=== PATIENT | female | born 1985 | race Caucasian/White ===

== ENCOUNTER → 2023-02-11 15:25 | Outpatient (BNVA) | payer OTHER, SELFPAY | PROVIDERS: PCP Internal Medicine; Visit Provider Psychiatry & Neurology Neurology | DX: Z13.89 Encounter for screening for other disorder (principal) ==

== ENCOUNTER 2023-03-24 13:06 | Outpatient (REF) | payer OTHER, SELFPAY ==
--- NOTE | 2023-03-24 13:12 | EEG_ITS ---
FINDINGS: Waking background activity consists of moderate to high voltage 7.5 to 8 hertz alpha frequency intermixed anteriorly with low voltage fast frequencies. Photic stimulation is without activation. Hyperventilation produces mild background slowing. No sleep stages are identified. No focal, lateralizing, or paroxysmal discharges are seen. IMPRESSION: This waking EEG is within normal limits. MD KINA Charles/ALDEN / [id number]
== END 2023-03-24 13:07 | disposition home or self-care (01) ==
LOC: HO.NEURO 13:06
PROVIDERS: PCP Internal Medicine; Visit Provider Psychiatry & Neurology Neurology
DX: R55 Syncope and collapse (principal)
CPT/HCPCS: 95816

== ENCOUNTER 2025-06-21 09:44 | Emergency (ER) | payer OTHER, SELFPAY ==
[2025-06-21 10:16] VITALS: BP 120/75; PULSE 112; RESP 16; TEMP 37.1; O2SAT 98; BMI 26.4
--- NOTE | 2025-06-21 10:19 | ED_ITS ---
HPI - General Adult General Chief complaint: General Medical Stated complaint: unable to eat or drink vomiting Time Seen by Provider: 06/21/25 13:44 History of Present Illness ED Provider: Enmanuel CHRISTENSEN narrative: The patient is a 40-year-old female who says that she has had a sore throat for about 4 days. She says that she was seen at an urgent care center 2 days ago on Wednesday and apparently had a positive strep test. She was prescribed antibiotics. However since starting the antibiotics the patient has continued to feel unwell with a severe sore throat. She has a great deal of trouble swallowing because of her sore throat. She has taken 3 doses of the antibiotics is able to keep the antibiotics down but does not feel that she is getting any better. She has had no shortness of breath. She is able to speak. But she describes severe pain with swallowing. Related Data Home Medications ?Medication ?Instructions ?Recorded ?Confirmed albuterol sulfate 90 mcg/actuation 1 inh inhalation Q4 -6H PRN 02/11/23 02/11/23 breath activated powder inhaler Previous Rx's ?Medication ?Instructions ?Recorded gabapentin 100 mg capsule See Rx Instructions PO BEDTI ME #90 02/11/23 caps riboflavin (vitamin B2) 100 mg 400 mg (4 x 100 mg) PO QAM #120 02/11/23 tablet tabs magnesium oxide 400 mg PO DAILY #30 caps 09/09 escitalopram oxalate 5 mg tablet 5 mg PO DAILY #30 tab s 09/28/23 ibuprofen 400 mg tablet 400 mg PO Q6H PRN pain #14 t abs 06/21/25 valacyclovir 1 gram tablet 1,000 mg PO TID 7 days #21 tabs 06/21/25 Allergies Allergy/AdvReac Type Severity Reaction Status Date / Time acetaminophen (From Percocet) Allergy Mild Vomiting Verified 06/21/25 10:19 doxycycline Allergy Mild Stomach Verified 06/21/25 10:19 Upset oxycodone (From Percocet) Allergy Mild Vomiting Verified 06/21/25 10:19 Review of Systems 2 Review of Systems: Yes all other systems are reviewed and are negative PMF Past Medical History Medical History (Updated 06/22/25 @ 00:01 by Background Dafadia) Chronic migraine without aura Syncope Restless legs syndrome (RLS) Heel spur Iron deficiency anemia Asthma Depression Anxiety Surgical History (Updated 09/21/22 @ 15:04 by LEONELA Becker) Hx of tonsillectomy History of tubal ligation History of gastric bypass History of carpal tunnel surgery Previous section Family History Family History (Updated 09/21/22 @ 15:07 by LEONELA Becker) Mother Depression Anxiety Breast cancer Hypertension Diabetes Maternal Grandmother Breast cancer Social History Social History (Updated 02/11/23 @ 15:34 by LEONELA Becker) Alcohol intake: current Patient Tobacco Use Status: Former Tobacco user Tobacco use type: Cigarette Smoked in Last 30 Days: No Substance Use Type: Marijuana Advance Directives: No Advance Directives Information Provided: Yes Physical Exam ED Vital Signs: Vital Signs - 24 hr 06/21/25 10:16 06/21/25 12:06 06/21/25 14:03 Temperature 98.7 F 97.9 F 100.1 F Pulse Rate 112 H 93 93 Respiratory Rate 16 16 16 Blood Pressure 120/75 122/78 116/75 Pulse Oximetry 98 100 100 Oxygen Delivery Method Room Air Room Air Room Air 06/21/25 15:27 Temperature 98.3 F Pulse Rate 93 Respiratory Rate 16 Blood Pressure 116/75 Pulse Oximetry 100 Oxygen Delivery Method Room Air BMI result Body Mass Index 26.4 Const Other: The patient is a 40-year-old woman who was awake and alert. She looks mildly unwell but not in acute distress. She seems to be handling her own secretions. She does not appear to be short of breath. Orientation/consciousness: patient oriented x3 HENMT Other: There was no trismus. The patient opens her mouth easily unwell. There are multiple vesicular like lesions in the posterior pharynx and on the posterior soft palate. No tonsillar enlargement. No exudate. Eyes Other: Pupils are round equal, conjunctivae are clear, extraocular movements intact General: appearance normal, both eyes and all related structures Neck Other: The neck is supple. No definite adenopathy was appreciated. Resp Effort & Inspection: normal respiratory effort Auscultation: clear to auscultation bilaterally Cardio Rate: regular rate Rhythm: regular rhythm Heart sounds: S1 normal heart sound present and S2 normal heart sound present GI Other: Abdomen was soft and nontender Skin Other: The skin is dry and unremarkable General skin exam: no rashes or lesions noted Neuro General: patient oriented x3, tone normal, moves all extremities, no focal motor deficits and CN's II-XI intact bilaterally Extrem Other: There is no calf swelling or tenderness. No asymmetry. No peripheral edema. Course Course Course Narrative: This is a rapid medical exam performed by Arline Monterroso NP: Additional HPI, ROS, PE not included below will be deferred to primary provider. Patient is a 40- year old female presenting to the ED with complaint of nausea and vomiting. Diagnosed with strep on , attempted to start antibiotics yesterday, has taken 3 total doses. Complains of sweats, ear pain, my teeth hurt. Now having nausea and vomiting, unable to tolerate PO. Plan: covid and strep swabs, labs Medications Administered Discontinued Medications Generic Name Dose Route Start Last Admin Trade Name Kiki PRN Reason Stop Dose Admin Dexamethasone Sodium Phosphate 10 mg 06/21/25 14:15 06/21/25 14:29 Dexamethasone Sod Phosphate 10 Mg/Ml Vial IVPUSH 06/21/25 14:16 10 mg ONCE ONE Administration Sodium Chloride 1,000 mls @ 999 mls/hr 06/21/25 14:15 06/21/25 15:22 Ns IV 06/21/25 15:15 Infused .Q1H1M DOTTIE Infusion Acetaminophen 1,000 mg in 100 mls @ 400 mls/hr 06/21/25 14:15 06/21/25 14:55 Ofirmev IV 06/21/25 14:29 Infused ONCE ONE Infusion Ketorolac Tromethamine 15 mg 06/21/25 14:15 06/21/25 14:29 Ketorolac Tromethamine 15 Mg/Ml Vial IVPUSH 06/21/25 14:16 15 mg ONCE ONE Administration Valacyclovir HCl 1,000 mg 06/21/25 15:09 06/21/25 15:21 Valacyclovir Hcl 1,000 Mg Tablet PO 06/21/25 15:10 1,000 mg ONCE ONE Administration Medical Decision Making Medical Decision Making MDM Narrative: the patient is a 40-year-old woman who presents with a complaint of significant sore throat pain. She says that she was diagnosed with a positive strep test 2 days ago at an urgent care center and was prescribed amoxicillin but is not getting any better. She describes severe pain with swallowing. She does not seem to have any shortness of breath or voice change or difficulty handling her secretions. Her pharyngeal exam is distinctly abnormal but I do not feel it is suggestive of strep throat. She has multiple vesicular like lesions in the posterior pharynx and on the posterior soft palate. This looks much more like a viral pharyngitis to me. The patient was swabbed for strep today and is negative. I also sent a herpes viral swab. Since she says she had a positive rapid strep 2 days ago I am advising her to continue her amoxicillin. I will also add valacyclovir 1 g t.i.d. x7 days. The patient was treated symptomatically with IV fluids, IV ketorolac, and IV dexamethasone. She seemed to feel better. She will be given her 1st dose of valacyclovir in the emergency department. She will be discharged to take the valacyclovir and finish the amoxicillin as well. She should return if worse. Lab Data 06/21/25 11:11 06/21/25 11:11 Labs: Lab Results 06/21/25 06/21/25 06/21/25 Range/Units 11:09 11:11 14:05 WBC 4.2 L (4.8-10.8) X10*3/uL RBC 4.68 (4.20-5.50) X10*6/uL Hgb 15.0 (12.0-16.0) g/dl Hct 42.9 (37.0-47.0) % MCV 91.7 (80.0-98.0) fL MCH 32.1 (27.0-33.0) pg MCHC 35.0 (31.0-35.0) g/dl RDW 12.7 (11.0-16.0) % Plt Count 165 (160-400) X10*3/uL MPV 9.5 (9.4-12.3) fL Immature Gran % (Auto) 0.5 H (0.0-0.4) % Neut % (Auto) 74.3 H (45-73) % Lymph % (Auto) 15.6 L (20-40) % [place] % (Auto) 9.4 (2-11) % Eos % (Auto) 0.0 (0-4) % Baso % (Auto) 0.2 (0-2) % Lymph # (Auto) 0.7 L (1.2-4.9) X10*3/uL [place] # (Auto) 0.4 (0.1-1.2) X10*3/uL Eos # (Auto) 0.0 (0.0-0.4) X10*3/uL Baso # (Auto) 0.0 (0.0-0.2) X10*3/uL Abs Immat Gran (auto) 0.02 (0.00-0.03) X10*3/uL Absolute Neuts (auto) 3.1 (2.0-8.3) x10*3/uL Absolute Nucleated RBC 0.000 (0.0-0.012) X10*3/uL Nucleated RBC % (auto) 0.0 (0.0-0.2) /100WBC Sodium 137 (135-145) mmol/L Potassium 4.3 (3.3-5.1) mmol/L Chloride 102 (96-108) mmol/L Carbon Dioxide 23 (22-29) mmol/L Anion Gap 16 (12-20) BUN 13 (9-16) mg/dL Creatinine 0.69 (0.5-1.4) mg/dL Estim Creat Clear Calc 89.4 Estimated GFR > 60 Random Glucose 69 (60-115) mg/dL Calcium 9.1 (8.4-10.2) mg/dL Total Bilirubin 0.4 (0.0-1.0) mg/dL AST 27 (5-31) U/L ALT 16 (0-31) U/L Alkaline Phosphatase 50 (39-117) U/L Total Protein 7.5 (6.5-8.0) g/dL Albumin 4.4 (3.5-5.0) g/dL Beta HCG, Quant < 2 mIU/mL COVID-19 (GEORGE) Negative (Negative) COVID-19 Clin Com See Note Influenza Type A (MOISÉS) Negative (Negative) Influenza Type B (MOISÉS) Negative (Negative) Influenza A & B Note See Note S. pyogenes GrpA MOISÉS Negative (Negative) Discharge Plan Discharge Clinical Impression: Pharyngitis Patient Disposition: Home, Self-Care Instructions: Pharyngitis (ED) Additional Instructions: The appearance of your throat today has the appearance of a significant viral infection rather than a bacterial infection. Your strep test today is negative. A swab has been sent to see if this might be a herpes virus infection. This will take a few days. In any event you will be started on valacyclovir, an antiviral medication. Please take this medication 3 times a day. Since the urgent care told you that you were previously positive for strep I would recommend completing the course of amoxicillin even though your strep test today is not positive on our testing. Please continue to use ibuprofen and acetaminophen (Tylenol) as needed for pain. Do your best to drink lot of fluids. Please work on getting a regular primary care doctor. Return to the emergency room if significantly worse. Prescriptions: New ibuprofen 400 mg tablet 400 mg PO Q6H PRN (Reason: pain) Qty: 14 0RF valacyclovir 1 gram tablet 1,000 mg PO TID 7 Days Qty: 21 0RF No Action magnesium oxide 400 mg magnesium capsule 400 mg PO DAILY Qty: 30 3RF escitalopram oxalate 5 mg tablet 5 mg PO DAILY Qty: 30 6RF albuterol sulfate 90 mcg/actuation aerosol powdr breath activated 1 inh inhalation Q4-6H PRN gabapentin 100 mg capsule See Rx Instructions PO BEDTIME Qty: 90 6RF Rx Instructions: 1-3 caps orally bedtime; riboflavin (vitamin B2) 100 mg tablet 400 mg PO QAM Qty: 120 6RF Stand Alone Forms: Work/School Release Interventions: ED Discharge Assessment Last Done: 06/21/25 15:27 Discharge Date/Time: 06/21/25 15:28 Print Language: S[place]
[2025-06-21 11:18] LABS: MANUAL DIFF FLAG NO
[2025-06-21 11:26] LABS: Hematocrit 42.9 % (37.0-47.0); Hemoglobin 15.0 g/dl (12.0-16.0); Imm Gran Abs Auto 0.02 X10*3/uL (0.00-0.03); Imm Gran Pct Auto 0.5 % (0.0-0.4); Lymphocytes Absolute Auto 0.7 X10*3/uL (1.2-4.9); Mean Corpuscular HGB Conc 35.0 g/dl (31.0-35.0); Mean Corpuscular Hemoglobin 32.1 pg (27.0-33.0); Mean Corpuscular Volume 91.7 fL (80.0-98.0); NRBC Abs Auto 0.000 X10*3/uL (0.0-0.012); NRBC Pct Auto 0.0 /100WBC (0.0-0.2); Platelet Count 165 X10*3/uL (160-400); Red Blood Count 4.68 X10*6/uL (4.20-5.50); White Blood Count 4.2 X10*3/uL (4.8-10.8)
[2025-06-21 11:39] LABS: Alanine Aminotransferase 16 U/L (0-31); Albumin Level 4.4 g/dL (3.5-5.0); Alkaline Phosphatase 50 U/L (39-117); Anion Gap 16 (12-20); Aspartate Amino Transferase 27 U/L (5-31); Blood Urea Nitrogen 13 mg/dL (9-16); Calcium 9.1 mg/dL (8.4-10.2); Carbon Dioxide 23 mmol/L (22-29); Chloride 102 mmol/L (96-108); Creatinine Clr Calc Pharmacy 89.4; Estimated Glomerular Filt Rate > 60; Potassium 4.3 mmol/L (3.3-5.1); Sodium 137 mmol/L (135-145); Total Protein 7.5 g/dL (6.5-8.0)
[2025-06-21 11:42] LABS: COVID-19 Test Negative (Negative); IDNOW Serial# 6674DD1D
[2025-06-21 11:43] LABS: IDNOW Serial# 08D9AD1C; Influenza B2 Negative (Negative)
[2025-06-21 12:06] VITALS: BP 122/78; PULSE 93; RESP 16; TEMP 36.6; O2SAT 100
--- OUTSIDE RECORDS SUMMARY | 2025-06-21 13:12 | XMS_ITS | Clinical Summary ---
Author Organization [facility] Address [address] [place] [address] Care Team Providers Care Commodity Trader Name Role Phone Guillaume Barkley Primary Care Provider Allergies Active Allergy Reactions Criticality Noted Date Comments Oxycodone Uqo-Enlsvehyd-Rch Unknown 03/23/2023 Oxycodone-Acetaminophen Unknown,Nausea A nd Vomiting 11/24/2019 Penicillins Nausea,Vomiting 03/23/2023 Tetracyclines Itching,Unknown 12/03/2016 Upset stomach and itchiness Medications Ventolin HFA 90 mcg/actuation inhaler INHALE 2 PUFFS EVERY 4 TO 6 HOURS NEEDED WHEEZING 02/23/2023 Active escitalopram (LEXAPRO) 5 mg tablet SMARTSI Tablet(s) By Mouth Daily 03/16/2023 Active Flovent HFA 220 mcg/actuation inhaler Only as needed 01/27/2023 Active gabapentin (NEURONTIN) 100 mg capsule Only as needed 02/12/2023 Active magnesium oxide (MAG-OX) 400 mg (241.3 mg mag) tablet SMARTSI Tablet(s) By Mouth Daily 02/11/2023 Active vitamin B complex-vitamin C tablet Take 1 tablet by mouth once a day. Active Active Problems Problem Noted Date Diagnosed Date Fatigue 04/17/2014 Lower back pain 04/17/2014 Major depression, recurrent 03/29/2014 Infectious gastroenteritis 11/03/2013 Asthma 03/31/2013 Morbid obesity 10/08/2011 Immunizations Immunization Administration Dates Next Due Tetanus Toxoid, Reduced Diph theria Toxoid, and Acellular Pertussis Vaccine, Adsorbed 05/13/2012 Family History Medical History Relation Name Comments Other Mother Family History of coronary arteriosclerosis Relation Name Status Comments Mother Social History Tobacco Use Types Packs/Day Years Used Date Smoking Tobacco: Never Smokeless Tobacco: Never Tobacco Cessation:Counseling Given: Not Answered Comments:: Alcohol Use Standard Drinks/Week Comments Yes 0 (1 standard drink = 0.6 oz pur e alcohol) very seldom Comments No Sex and Gender Information Value Date Recorded Sex Assigned at Female 03/22/2023 2:19 PM EDT Legal Sex Female 7:42 AM EDT Gender Identity Female 03/22/2023 2:19 PM EDT Sexual Orientation Straight 03/22/2023 2: 19 PM EDT Last Filed Vital Signs Vital Sign Reading Time Taken Comments Blood Pressure 114/72 05/26/2023 10:22 AM EDT Pulse 64 05/26/2023 10:22 AM EDT Temperature 36.7 C (98 F) 05/20/2023 2:34 PM EDT Respiratory Rate 16 05/20/2023 2:34 PM EDT Oxygen Saturation 100% 05/26/2023 10:22 AM EDT Inhaled Oxygen Concentration - - Weight 88.6 kg (195 lb 6.4 oz) 05/20/2023 10:16 AM EDT Height 152.4 cm (5') 05/13/2023 10:14 AM EDT Body Mass Index 38.16 05/13/2023 10:14 AM EDT Plan of Treatment Health Maintenance Due Date Last Done Comments HIV Screening 1986 HPV and Pap Smear 1986 Hepatitis C Screening 1986 Varicella Vaccines (1 of 2 - 13+ 2-dose series) 1999 Hepatitis B Vaccines (1 of 3 - 19+ 3-dose series) 2005 Pneumococcal Vaccine: Pediat paris (0-5 Years) and At-Risk Patients (6-50 Years) (1 of 2 - PCV) 2005 Cervical Cancer Screening 11/07/2016 Pap Smear 11/07/2016 11/07/2013 Alcohol/Substance Use Screening 10/18/2024 Depression Screening and Follow-Up 10/18/2024 Social Drivers of Health Viridiana ual Screening 10/18/2024 COVID-19 Vaccine (3 - 2024-2 6 season) 2025 08/30/2021, 01/26/2021 Influenza Vaccine (#1) 2025 2, 08/11/2022, 08/25/2021, Additional history exists DTaP,Tdap,and Td Vaccines (3 - Td or Tdap) 06/22/2025 06/22/2015, 05/13/2012 RSV Vaccine (60+ years old a nd patients) (1 - 1-dose 75+ series) 2061 Procedures * Due to [place] Fast [employer] law, this organization might not be sharing negative HIV tests. Procedure Name Priority Date/Time Associated Diagnosis Comments PAP SMEAR Routine 11/07/2013 4:14 PM EST from Last 3 Months or Most Recently Relevant to Health Maintenance Results * Due to [place] state law, this organization might not be sharing negative HIV tests. * PAP SMEAR (11/07/2013 4:14 PM EST) Pap smear NEGATIVE/DR DESIREE LUONG OTHER 11/07/2013 4:14 PM EST us Jodi Ramírez HEALTH MAINTENANCE Final Resu lt OTHER from Last 3 Months or Most Recently Relevant to Health Maintenance Insurance [address] [address] MEDICAID Advance Directives Documents on File Type Date Recorded Patient Staffing Assistant Expl anation Advance Directive 11/09/2011 12:00 AM Mat lopez Care Directives Advance Directive 11/06/2011 12:00 AM liz [email or web address] Dec (Adv.Dir) * Full Code (Latest Code Status on File) Date Activated Date Inactivated Comments 05/20/2023 10:19 AM 05/20/2023 5:01 PM Care Teams Commodity Trader Relationship Specialty Start Date End Date RubiaLorenano [address] [place] [id number] PCP - General Internal Medicine 02/03/23
--- OUTSIDE RECORDS SUMMARY | 2025-06-21 13:12 | XMS_ITS | Clinical Summary ---
Author Organization 175 [facility] Address [address] [place] [address] Phone Care Team Providers Care Environmental Services Coordinator Name Role Phone RubiaGuillaume Primary Care Provider [phone] Allergies Active Allergy Reactions Criticality Noted Date Comments Doxycycline 12/03/2016 Upset stomach and itchiness Oxycodone 12/03/2016 Upset stomach Oxycodone-Acetaminophe n Nausea And Vomiting 11/24/2019 Percocet [Apap-fd&c Red #40 [place]-oxycodone] Medications bupropion HCl (WELLBUTRIN ORAL) Take by mouth. Activ e cyclobenzapri ne (FLEXERIL) 5 mg tablet Take 5 mg by mouth 3 times daily as needed. Active escitalopram (LEXAPRO) 20 mg tablet Take 20 mg by mouth daily. Active montelukast (SINGULAIR) 10 mg tablet Take 1 tablet by mouth at bedtime for 360 days. 07/22/20 21 Active mupirocin (BACTROBAN) 2 % ointment Apply a small amount to nipple(s) and gently rub in after nursing/pumping, use 6 times per day for 5-7 days, use as directed. 12/03/19 17 Active albuterol HFA (ProAir HFA) 90 mcg/actuation inhaler INHALE 2 PUFFS INTO THE LUNGS EVERY 6 HOURS NEEDED FOR COUGH OR WHEEZING FOR UP TO 30 DAYS. 09/12/20 21 Active rOPINIRole (REQUIP) 0.25 mg tablet Take 0.25 mg by mouth 3 times daily. Active nystatin (MYCOSTATIN) 100,000 unit/gram powder Apply topically 2 (two) times a day. 15 g 08/21/20 24 2024 Active hydrOXYzine HCL (ATARAX) 25 mg tablet Take by mouth. Ac tive sertraline (ZOLOFT) 50 mg tablet Take 1 tablet (50 mg total) by mouth 1 (one) time each day. Active Zepbound 12.5 mg/0.5 mL injection INJECT 12.5 MG SUBCUTANEOUSLY EVERY 7 DAYS. 4 mL 06/20/20 25 Active tirzepatide, weight loss, (Zepbound) 12.5 mg/0.5 mL injection Inject 0.5 mL (12.5 mg total) under the skin every 7 (seven) days. 2 mL 05/22/20 25 2024 Discontinued Active Problems Problem Noted Date Diagnosed Date Class 1 obesity due to exces s calories without serious comorbidity with body mass index (BMI) of 34.0 to 34.9 in adult 08/16/2024 Syncope 05/26/2024 Allergic rhinitis 02/19/2021 Overview (08/16/2024): Ishan Rob Iron (Fe) deficiency anemia 01/31/2021 Overview (08/16/2024): Ishan Rob Anxiety 01/02/2021 Overview (08/16/2024): Ishan Rob Depressive episode 01/02/2021 Overview (08/16/2024): Ishan Rob Restless leg syndrome 01/02/2021 Encounters Date Type Department Care Team Description 06/12/2025 10:00 AM EDT Office Visit Bariatric Surgery - [address] [id number] Susan Hill PA Overweight (BMI 25.0-29.9) (Primary Dx); Bariatric surgery status 05/21/2025 Telephone Bariatric Surgery - [place] [address] [place] [address] Susan Hill PA 04/23/2025 Telephone Bariatric Surgery - [place] [address] [facility] [address] [place] [address] Susan Hill PA from Last 3 Months Immunizations Name Administration Dates Next Due WinningAdvantage/TheraVid SARS-CoV-2 COVID -19, vector-nr, [id number], preservative free 08/30/2021,01/26/2021 Surgical History Surgery Date Site/Laterality Comments SECTION 2004, 2012,2015,2019 PROCEDURE: HISTORICAL DELIVERY TONSILLECTOMY 10/18/2000 PROCEDURE: HISTORICAL TONSILLECTOMY ABDOMINAL SURGERY 10/18/2011 PROCEDURE: HISTORICAL ABDOMINAL SURGERY; COMMENT: gastric bypass CARPAL TUNNEL RELEASE 10/18/2009 Bilateral PROCEDURE: HISTORICAL CARPAL TUNNEL REL TUBAL LIGATION 2020 PROCEDURE: HISTORICAL TUBAL LIGATION SECTION PROCEDURE: SECTION TONSILLECTOMY PROCEDURE:TONSILLECTOMY GASTRIC BYPASS PROCEDURE:GASTRIC BYPASS Medical History Medical History Date Comments Anxiety DX:Anxiety Depression DX:Depression Restless legs DX:Restless legs Iron deficiency anemia DX:Iron d eficiency anemia Family History Medical History Relation Name Comments Asthma Aunt Asthma Brother Asthma Daughter No Known Problems Father Breast cancer Mother Depression Mother Diabetes Mother Hypertension Mother Breast cancer Mother's side Mat Cousin Breast cancer Other Mat great grandmother Relation Name Status Comments Aunt Alive Brother Alive Daughter Alive Father Mother Alive Mother's side Mat Cousin Other Mat great grandmother Social History Tobacco Use Types Packs/Day Years Used Date Smoking Tobacco: Never Smokeless Tobacco: Never Tobacco Cessation:Counseling Given: Not Answered Alcohol Use Standard Drinks/Week Comments Yes 0 (1 standard drink = 0.6 oz pur e alcohol) Comments Unknown Sex and Gender Information Value Date Recorded Sex Assigned at Not on file Legal Sex Female 11:25 PM EST Gender Identity Not on file Sexual Orientation Not on file Obstetrics History Last Filed Vital Signs Vital Sign Reading Time Taken Comments Blood Pressure 110/76 06/12/2025 9:08 AM EDT Pulse 85 06/12/2025 9:08 AM EDT Temperature 36.6 C (97.8 F) 11/20/2024 9:21 AM EST Respiratory Rate - - Oxygen Saturation - - Inhaled Oxygen Concentration - - Weight 65.4 kg (144 lb 3.2 oz) 06/12/2025 9:08 A M EDT Height 152.4 cm (5') 06/12/2025 9:08 AM EDT Body Mass Index 28.16 06/12/2025 9:08 AM EDT Plan of Treatment Upcoming Encounters Date Type Department Care Team (Late st Contact Info) Description 11/08/2025 9:15 AM EST Office Visit Bariatric Surgery - [place] [address] [facility] [address] [place] [address] Susan Hill PA [address] [place] [phone] Health Maintenance Due Date Last Done Comments Hepatitis B Vaccines (1 of 3 - 19+ 3-dose series) 2005 Pneumococcal Vaccine: Pediatrics (0 to 5 Years) and At-Risk Patients (6 to 49 Years) (1 of 2 - PCV) 2005 Cervical Cancer Screening: P ap Smear 2007 HIV Screening 09/20/2022 Hepatitis C Screening 09/20/2022 Social Influencers of Health Screening 09/20/2022 Depression Screening 10/18/2024 COVID-19 Vaccine (3 - 2024-2 6 season) 2025 08/30/2021, 01/26/2021 Influenza Vaccine (#1) 2025 2, 08/02/2017 DTaP,Tdap,and Td Vaccines (3 - Td or Tdap) 06/22/2025 06/22/2015, 05/13/2012 Cholesterol Screening (Lipid Panel) 02/06/2030 02/06/2025 HIB Vaccines Aged Out No longer eligi ble based on patient's age to complete this topic HPV Vaccines Aged Out No longer eligi ble based on patient's age to complete this topic Hepatitis A Vaccines Aged Out No long er eligible based on patient's age to complete this topic IPV Vaccines Aged Out No longer eligi ble based on patient's age to complete this topic MMR Vaccines Aged Out No longer eligi ble based on patient's age to complete this topic Meningococcal ACWY Vaccine Aged Out N o longer eligible based on patient's age to complete this topic Meningococcal B Vaccine Aged Out No l onger eligible based on patient's age to complete this topic RSV Immunization Patients Under 20 months Aged Out No longer eligible b ased on patient's age to complete this topic Varicella Vaccines Aged Out No longer eligible based on patient's age to complete this topic Procedures Procedure Name Priority Date/Time Associated Diagnosis Comments LIPID PANEL WITH REFLEX TO DIRECT LDL Routine 02/06/2025 11:33 AM EDT Depression Anxiety Anemia Asthma Abdominal migraine Routine general medical examination at a health care facility from Last 3 Months or Most Recently Relevant to Health Maintenance Results * Lipid panel with reflex to direct LDL (02/06/2025 11:33 AM EDT) Cholesterol 157 0 - 200 mg/dL LAB CHEMISTRY METHOD 02/06/2025 3:51 PM EDT [facility] Triglycerides 71 0 - 150 mg/dL LAB CHEMISTRY METHOD 02/06/2025 3:51 PM EDT [facility] HDL 56 >=40 mg/dL LAB CHEMISTRY METHOD 02/06/2025 3:51 PM EDT [facility] LDL Calculated 87 0 - 100 mg/dL LAB CHEMISTRY METHOD 02/06/2025 3:51 PM EDT [facility] VLDL Cholesterol Maninder 14.2 mg/dL LAB CHEMISTRY METHOD 02/06/2025 3:51 PM EDT [facility] Non HDL Chol. (LDL+VLDL) 101 <145 mg/dL LAB CHEMISTRY METHOD 02/06/2025 3:51 PM EDT [facility] Chol/HDL Ratio 2.8 0.0 - 4.4 LAB CHEMISTRY METHOD 02/06/2025 3:51 PM EDT [facility] Blood Venous blood specimen / Unknown Venipuncture / Unknown 02/06/2025 11:33 AM EDT 02/06/2025 11:34 AM EDT Any [facility] LAB BLOOD ORDERABLES Final Resul t [facility] [address] [place] [address], from Last 3 Months or Most Recently Relevant to Health Maintenance Insurance [facility] [employer] Advance Directives Documents on File Type Date Recorded Patient Student Support Services Director Expl anation Health Care Decision (hx) 08/11/2022 AD WHEAT DIRECTIVE Health Care Decision (hx) 08/11/2022 AD WHEAT DIRECTIVE Care Teams Environmental Services Coordinator Relationship Specialty Start Date End Date Guillaume Barkley DO [address] [place] [phone] PCP - General Internal Medicine 06/10/21
--- OUTSIDE RECORDS SUMMARY | 2025-06-21 13:13 | XMS_ITS | Clinical Summary ---
[facility] Address [address] [place] [address] Care Team Providers Care Chuck Splitter Name Role Phone Guillaume Barkley DO Primary Care Provider [phone] Allergies Active Allergy Reactions Criticality Noted Date Comments Doxycycline 11/24/2019 Oxycodone-Acetaminophen 11/24/2019 Medications Medication Sig Dispensed Refills Start Date End Date Status escitalopram (LEXAPRO) 20 MG tablet Take 20 mg by mouth daily. 0 Active buPROPion (WELLBUTRIN) 75 MG tablet Take 75 mg by mouth 2 (two) times a day. 0 Active Active Problems No known active problems Social History Tobacco Use Types Packs/Day Years Used Date Smoking Tobacco: Never Smokeless Tobacco: Never Alcohol Use Standard Drinks/Week Comments Yes 0 (1 standard drink = 0.6 oz pur e alcohol) ocassionally when not Sex and Gender Information Value Date Recorded Sex Assigned at Not on file Gender Identity Not on file Sexual Orientation Not on file Job Start Date Occupation Industry Not on file Not on file Not on file Last Filed Vital Signs Vital Sign Reading Time Taken Comments Blood Pressure 117/73 03/06/2022 11:57 AM EDT Pulse 74 03/06/2022 11:57 AM EDT Temperature 36.2 C (97.2 F) 03/06/2022 11:57 AM EDT Respiratory Rate - - Oxygen Saturation 99% 03/06/2022 11:57 AM EDT Inhaled Oxygen Concentration - - Weight 103.9 kg (229 lb) 03/06/2022 11:57 AM EDT Height 152.4 cm (5') 03/06/2022 11:57 AM EDT Body Mass Index 44.72 03/06/2022 11:57 AM EDT Plan of Treatment Health Maintenance Due Date Last Done Comments Hepatitis B Vaccines (1 of 3 - 3-dose series) 1986 Hepatitis C Screening 1986 Depression Screening 1998 Preventative Health Evaluation 2004 DTap / Tdap / Td (1 - Tdap) 2005 Cervical Cancer Screening (Pap Smear) 2007 COVID-19 Vaccine (3 - 2024-2 6 season) 2025 08/30/2021, 01/26/2021 Influenza Vaccine (#1) 2025 08/02/2017 Pneumococcal Vaccine Aged Out No long er eligible based on patient's age to complete this topic RSV Ped < 20 months Aged Out No longe r eligible based on patient's age to complete this topic Care Teams Chuck Splitter Relationship Specialty Start Date End Date Guillaume Barkley DO [address] [place] [id number] PCP - General Internal Medicine 03/06/22
--- OUTSIDE RECORDS SUMMARY | 2025-06-21 13:13 | XMS_ITS | Encounter Summary ---
Author Organization [facility] Address [address] [place] [address] Care Team Providers Care Miniature Set Constructor Name Role Phone Guillaume Barkley Primary Care Provider [phone] Encounter Details Date Type Department Care Team (Late st Contact Info) Description 05/13/2023 [facility] Evaluation [address] [place] [address] Mychart, Generic Provider [address] [place], [place] [id number] Pre-Operative instructions for surgery 05/20/23- Dr Yang Social History Tobacco Use Types Packs/Day Years Used Date Smoking Tobacco: Never Smokeless Tobacco: Never Comments:: Alcohol Use Standard Drinks/Week Comments Yes 0 (1 standard drink = 0.6 oz pur e alcohol) very seldom Comments No Sex and Gender Information Value Date Recorded Sex Assigned at Female 03/22/2023 2:19 PM EDT Legal Sex Female 7:42 AM EDT Gender Identity Female 03/22/2023 2:19 PM EDT Sexual Orientation Straight 03/22/2023 2: 19 PM EDT documented as of this encounter Plan of Treatment Not on file documented as of this encounter Visit Diagnoses Not on filedocumented in this encounter Care Teams Miniature Set Constructor Relationship Specialty Start Date End Date MaryanaaspenGuillaume soto [address] [place] [id number] PCP - General Internal Medicine 02/03/23 documented as of this encounter
[2025-06-21 14:03] VITALS: BP 116/75; PULSE 93; RESP 16; TEMP 37.8; O2SAT 100
[2025-06-21 14:23] LABS: IDNOW Serial# 58CA691E; Strep A Nucleic Acid Negative (Negative)
[2025-06-21 15:27] VITALS: BP 116/75; PULSE 93; RESP 16; TEMP 36.8; O2SAT 100
== END 2025-06-21 15:28 | disposition home or self-care (01) ==
PROVIDERS: Registered Nurse Emergency; Emergency Provider Emergency Medicine
DX: J02.9 Acute pharyngitis, unspecified (principal); R10.2 Pelvic and perineal pain; Z79.899 Other long term (current) drug therapy; Z11.52 Encounter for screening for COVID-19; Z03.818 Encounter for observation for suspected exposure to other biological agents ruled out
CPT/HCPCS: 80053; 84702; 85025; 87255; 87502; 87635; 87651; 96361; 96374; 96375; 99284; J0131; J1100; J1885

== ENCOUNTER 2025-08-31 15:26 | Emergency (ER) | payer OTHER, SELFPAY ==
--- NOTE | ~2025-08-31 | US_ITS ---
CLINICAL HISTORY: LLQ pain, vaginal bleeding US pelvis transabdominal and transvaginal with doppler interrogation Comparison: None Findings: Transabdominal scanning performed for overall anatomy. Transvaginal scanning performed for additional detail. Anteverted uterus 9.0 cm in length. Normal echotexture. No fibroids. Normal endometrium, with IUD in good appearing position. No definable endometrial thickening outside of the IUD margin. Right ovary normal, 4.5 cm. Normal color and spectral flow. A similar-appearing cyst measuring 4.6 x 2.3 x 2.4 cm is noted. Left ovary is somewhat prominent, measuring up to 7.0 cm. Normal color flow. There is a large complex cyst measuring 5.4 x 4.9 x 4.9 cm, with lace-like internal echoes, most compatible with a hemorrhagic cyst. No free fluid Impression: 1. 5.4 cm complex left ovarian cyst appears hemorrhagic. [id number] follow-up ultrasound could be performed to document resolution. 2. Similar-appearing right ovarian cyst. 3. IUD in good appearing position. This document has been electronically signed by: Mayito Funk MD on 08/31/2025 18:14:30
[2025-08-31 16:18] VITALS: BP 115/77; PULSE 86; RESP 18; TEMP 36.6; O2SAT 100; BMI 24.4
--- NOTE | 2025-08-31 16:18 | ED.GENADULT ---
HPI - General Adult General Chief complaint: Abdominal Pain Stated complaint: lower abd pain Time Seen by Provider: 08/31/25 18:21 History of Present Illness HPI narrative: DUPLICATE NOTE DON T USE Related Data Home Medications ?Medication ?Instructions ?Recorded ?Confirmed albuterol sulfate 90 mcg/actuation 1 inh inhalation Q4-6H PRN 02/11/23 02/11/23 breath activated powder inhaler Previous Rx's ?Medication ?Instructions ?Recorded gabapentin 100 mg capsule See Rx Instructions PO BEDTIME #90 02/11/23 caps riboflavin (vitamin B2) 100 mg 400 mg (4 x 100 mg) PO QAM #120 02/11/23 tablet tabs magnesium oxide 400 mg PO DAILY #30 caps 06/28/23 escitalopram oxalate 5 mg tablet 5 mg PO DAILY #30 tabs 09/28/23 ibuprofen 400 mg tablet 400 mg PO Q6H PRN pain #14 tabs 06/21/25 valacyclovir 1 gram tablet 1,000 mg PO TID 7 days #21 tabs 06/21/25 ondansetron 4 mg disintegrating 4 mg PO Q8H PRN nausea and 08/31/25 tablet vomiting #14 tabs oxycodone 5 mg tablet 5 mg PO TID PRN pain #14 tabs 08/31/25 Allergies Allergy/AdvReac Type Severity Reaction Status Date / Time acetaminophen (From Percocet) Allergy Mild Vomiting Verified 08/31/25 16:20 doxycycline Allergy Mild Stomach Verified 08/31/25 16:20 Upset oxycodone (From Percocet) Allergy Mild Vomiting Verified 08/31/25 16:20 [facility] Past Medical History Medical History (Updated 09/01/25 @ 00:00 by Umair Goodwin) Chronic migraine without aura Syncope Restless legs syndrome (RLS) Heel spur Iron deficiency anemia Asthma Depression Anxiety Surgical History (Updated 09/21/22 @ 15:04 by LEONELA Becker) Hx of tonsillectomy History of tubal ligation History of gastric bypass History of carpal tunnel surgery Previous section Family History Family History (Updated 09/21/22 @ 15:07 by LEONELA Becker) Mother Depression Anxiety Breast cancer Hypertension Diabetes Maternal Grandmother Breast cancer Social History Social History (Updated 02/11/23 @ 15:34 by LEONELA Becker) Alcohol intake: current Patient Tobacco Use Status: Former Tobacco user Tobacco use type: Cigarette Substance Use Type: Marijuana Advance Directives: No Advance Directives Information Provided: Yes Physical Exam ED Vital Signs: BMI result Body Mass Index 24.4 Course Course Course Narrative: This is a rapid medical exam performed by Arline Monterroso NP: Additional HPI, ROS, PE not included below will be deferred to primary provider. Patient is a 40y/o F presenting from urgent care for evaluation of LLQ abd pain worsening over the past week. After moving boxes Wed felt a pop. Has IUD placed in 2019, does not get regular periods, today in the shower noted vaginal bleeding similar to period. Reports nausea but denies vomiting, diarrhea, constipation. Referred to ED for imaging. Plan: labs, UA, u/s Medical Decision Making Lab Data 08/31/25 16:28 08/31/25 16:28 Labs: Lab Results 08/31/25 08/31/25 Range/Units 16:28 16:32 WBC 4.8 (4.8-10.8) X10*3/uL RBC 4.11 L (4.20-5.50) X10*6/uL Hgb 13.6 (12.0-16.0) g/dl Hct 38.9 (37.0-47.0) % MCV 94.6 (80.0-98.0) fL MCH 33.1 H (27.0-33.0) pg MCHC 35.0 (31.0-35.0) g/dl RDW 13.2 (11.0-16.0) % Plt Count 204 (160-400) X10*3/uL MPV 10.1 (9.4-12.3) fL Immature Gran % (Auto) 0.2 (0.0-0.4) % Neut % (Auto) 57.9 (45-73) % Lymph % (Auto) 31.3 (20-40) % Martin % (Auto) 9.0 (2-11) % Eos % (Auto) 1.0 (0-4) % Baso % (Auto) 0.6 (0-2) % Lymph # (Auto) 1.5 (1.2-4.9) X10*3/uL Martin # (Auto) 0.4 (0.1-1.2) X10*3/uL Eos # (Auto) 0.1 (0.0-0.4) X10*3/uL Baso # (Auto) 0.0 (0.0-0.2) X10*3/uL Abs Immat Gran (auto) 0.01 (0.00-0.03) X10*3/uL Absolute Neuts (auto) 2.8 (2.0-8.3) x10*3/uL Absolute Nucleated RBC 0.000 (0.0-0.012) X10*3/uL Nucleated RBC % (auto) 0.0 (0.0-0.2) /100WBC Sodium 138 (135-145) mmol/L Potassium 3.7 (3.3-5.1) mmol/L Chloride 107 (96-108) mmol/L Carbon Dioxide 26 (22-29) mmol/L Anion Gap 9 L (12-20) BUN 10 (9-16) mg/dL Creatinine 0.61 (0.5-1.4) mg/dL Estim Creat Clear Calc 97.7 Estimated GFR > 60 Random Glucose 79 (60-115) mg/dL Calcium 8.7 (8.4-10.2) mg/dL Total Bilirubin 0.4 (0.0-1.0) mg/dL AST 19 (5-31) U/L ALT 14 (0-31) U/L Alkaline Phosphatase 48 (39-117) U/L Total Protein 6.6 (6.5-8.0) g/dL Albumin 4.1 (3.5-5.0) g/dL Beta HCG, Quant < 2 mIU/mL Urine Color Yellow Urine Appearance Clear Urine pH 6.5 (5.0-9.0) Ur Specific Carlton >= 1.030 H (1.005-1.025) Urine Protein Negative (Neg-Trace) mg/dL Urine Glucose (UA) 250 H (Negative) mg/dL Urine Ketones Trace (Negative) mg/dL Urine Blood Negative (Negative) Urine Nitrite Negative (Negative) Ur Leukocyte Esterase Negative (Negative) Discharge Plan Discharge Clinical Impression: Ovarian cyst Patient Disposition: Home, Self-Care Instructions: Ovarian Cyst (ED) Additional Instructions: Take tylenol 1000mg every 8 hours and ibuprofen 400mg every 8 hours. 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 US report did not show any signs of ovarian torsion. Prescriptions: New oxycodone 5 mg tablet 5 mg PO TID PRN (Reason: pain) Qty: 14 0RF Rx Instructions: Partial Fill upon patient request. ondansetron 4 mg tablet,disintegrating 4 mg PO Q8H PRN (Reason: nausea and vomiting) Qty: 14 0RF No Action magnesium oxide 400 mg magnesium capsule 400 mg PO DAILY Qty: 30 3RF escitalopram oxalate 5 mg tablet 5 mg PO DAILY Qty: 30 6RF ibuprofen 400 mg tablet 400 mg PO Q6H PRN (Reason: pain) Qty: 14 0RF valacyclovir 1 gram tablet 1,000 mg PO TID 7 Days Qty: 21 0RF albuterol sulfate 90 mcg/actuation aerosol powdr breath activated 1 inh inhalation Q4-6H PRN gabapentin 100 mg capsule See Rx Instructions PO BEDTIME Qty: 90 6RF Rx Instructions: 1-3 caps orally bedtime; riboflavin (vitamin B2) 100 mg tablet 400 mg PO QAM Qty: 120 6RF Interventions: ED Discharge Assessment Last Done: 08/31/25 19:14 Discharge Date/Time: 08/31/25 19:15 Print Language: Wolof
[2025-08-31 16:34] LABS: MANUAL DIFF FLAG NO
[2025-08-31 16:38] LABS: Hematocrit 38.9 % (37.0-47.0); Hemoglobin 13.6 g/dl (12.0-16.0); Imm Gran Abs Auto 0.01 X10*3/uL (0.00-0.03); Imm Gran Pct Auto 0.2 % (0.0-0.4); Lymphocytes Absolute Auto 1.5 X10*3/uL (1.2-4.9); Mean Corpuscular HGB Conc 35.0 g/dl (31.0-35.0); Mean Corpuscular Hemoglobin 33.1 pg (27.0-33.0); Mean Corpuscular Volume 94.6 fL (80.0-98.0); NRBC Abs Auto 0.000 X10*3/uL (0.0-0.012); NRBC Pct Auto 0.0 /100WBC (0.0-0.2); Platelet Count 204 X10*3/uL (160-400); Red Blood Count 4.11 X10*6/uL (4.20-5.50); White Blood Count 4.8 X10*3/uL (4.8-10.8)
[2025-08-31 16:55] LABS: Alanine Aminotransferase 14 U/L (0-31); Albumin Level 4.1 g/dL (3.5-5.0); Alkaline Phosphatase 48 U/L (39-117); Anion Gap 9 (12-20); Aspartate Amino Transferase 19 U/L (5-31); Blood Urea Nitrogen 10 mg/dL (9-16); Calcium 8.7 mg/dL (8.4-10.2); Carbon Dioxide 26 mmol/L (22-29); Chloride 107 mmol/L (96-108); Creatinine Clr Calc Pharmacy 97.7; Estimated Glomerular Filt Rate > 60; Potassium 3.7 mmol/L (3.3-5.1); Sodium 138 mmol/L (135-145); Total Protein 6.6 g/dL (6.5-8.0)
[2025-08-31 16:56] LABS: Appearance Urine Clear; Glucose Urine UA 250 mg/dL (Negative); PH 6.5 (5.0-9.0); Specific Gravity - Urine >= 1.030 (1.005-1.025)
[2025-08-31 18:16] VITALS: BP 134/86; PULSE 81; RESP 16; TEMP 36.7; O2SAT 100
--- NOTE | 2025-08-31 18:38 | ED.GENADULT ---
[facility] - General Adult General Chief complaint: Abdominal Pain Stated complaint: lower abd pain Time Seen by Provider: 08/31/25 18:21 Source: patient Mode of arrival: ambulatory Limitations: no limitations History of Present Illness ED Provider: Dr. Dailey [facility] narrative: 40-year-old female presented hospital today for evaluation of lower abdominal pain in the left side. The patient was sent from urgent care for further evaluation. Patient stated that she does have a IUD placement which is hormonal. She is complaining of some nausea. Patient's was sent in for evaluation with a pelvic ultrasound. She is complaining of some vaginal bleeding as well. She stated this is abnormal normally she does not have any menstrual bleed with her IUD Related Data Home Medications ?Medication ?Instructions ?Recorded ?Confirmed albuterol sulfate 90 mcg/actuation 1 inh inhalation Q4-6H PRN 02/11/23 02/11/23 breath activated powder inhaler Previous Rx's ?Medication ?Instructions ?Recorded gabapentin 100 mg capsule See Rx Instructions PO BEDTIME #90 02/11/23 caps riboflavin (vitamin B2) 100 mg 400 mg (4 x 100 mg) PO QAM #120 02/11/23 tablet tabs magnesium oxide 400 mg PO DAILY #30 caps 06/28/23 escitalopram oxalate 5 mg tablet 5 mg PO DAILY #30 tabs 09/28/23 ibuprofen 400 mg tablet 400 mg PO Q6H PRN pain #14 tabs 06/21/25 valacyclovir 1 gram tablet 1,000 mg PO TID 7 days #21 tabs 06/21/25 ondansetron 4 mg disintegrating 4 mg PO Q8H PRN nausea and 08/31/25 tablet vomiting #14 tabs oxycodone 5 mg tablet 5 mg PO TID PRN pain #14 tabs 08/31/25 Allergies Allergy/AdvReac Type Severity Reaction Status Date / Time acetaminophen (From Percocet) Allergy Mild Vomiting Verified 08/31/25 16:20 doxycycline Allergy Mild Stomach Verified 08/31/25 16:20 Upset oxycodone (From Percocet) Allergy Mild Vomiting Verified 08/31/25 16:20 Review of Systems Review of Systems: Pertinent review of systems as mentioned in HPI. All other system otherwise negative. [facility] Past Medical History [facility] Narrative: Medical history as mentioned in [facility] Medical History (Updated 09/01/25 @ 00:00 by Background Daemon) Chronic migraine without aura Syncope Restless legs syndrome (RLS) Heel spur Iron deficiency anemia Asthma Depression Anxiety Surgical History (Updated 09/21/22 @ 15:04 by LEONELA Becker) Hx of tonsillectomy History of tubal ligation History of gastric bypass History of carpal tunnel surgery Previous section Family History Family History (Updated 09/21/22 @ 15:07 by LEONELA Becker) Mother Depression Anxiety Breast cancer Hypertension Diabetes Maternal Grandmother Breast cancer Social History Social History (Updated 02/11/23 @ 15:34 by LEONELA Becker) Alcohol intake: current Patient Tobacco Use Status: Former Tobacco user Tobacco use type: Cigarette Substance Use Type: Marijuana Advance Directives: No Advance Directives Information Provided: Yes Physical Exam ED Exam Exam: General: Pleasant, no distress, interacting appropriately Head: Normacephalic, atraumatic ENT: oral mucosa moist, neck supple, no tracheal deviation Gastrointestinal: Soft, non distended, left lower quadrant tenderness Neurological: Awake and alert, no facial droop noted Skin: Warm and dry Psychiatric: Appropriate mood and thoughts Vital Signs: Vital Signs - 24 hr 08/31/25 16:18 08/31/25 18:16 08/31/25 19:14 Temperature 97.8 F 98.1 F 98.1 F Pulse Rate 86 81 81 Respiratory Rate 18 16 16 Blood Pressure 115/77 134/86 134/86 Pulse Oximetry 100 100 100 Oxygen Delivery Method Room Air Room Air Room Air BMI result Body Mass Index 24.4 Medical Decision Making Medical Decision Making MDM Narrative: This is a 40-year-old female presented hospital today for evaluation of left lower quadrant abdominal pain. Patient's hemoglobin stable at 13.6. No sign of leukocytosis, patient's UA did not show any signs of UTI. Patient's ultrasound did show a 5.4 cm complex left ovarian cyst that appears to be hemorrhagic. IUD appears to be in good position at this time. No sign of ovarian torsion. Discussed the results with the patient. Recommended her to follow up with her OBGYN doctor. She does have appointment this upcoming week. She will plan to follow up with the regards to the left ovarian cyst. Patient will be sent home with some pain medicine to take as needed for her pain. Encouraged conservative treatment at this time. Return precautions provided the patient. She agrees and understands this plan Differential Diagnosis Differential Diagnoses: The differential diagnosis associated with the presentation includes Ovarian torsion, ovarian cyst, fibroids, abnormal uterine bleed Lab Data MDM Lab Attestation statement: I reviewed the patient's lab results. 08/31/25 16:28 08/31/25 16:28 Labs: Lab Results 08/31/25 08/31/25 Range/Units 16:28 16:32 WBC 4.8 (4.8-10.8) X10*3/uL RBC 4.11 L (4.20-5.50) X10*6/uL Hgb 13.6 (12.0-16.0) g/dl Hct 38.9 (37.0-47.0) % MCV 94.6 (80.0-98.0) fL MCH 33.1 H (27.0-33.0) pg MCHC 35.0 (31.0-35.0) g/dl RDW 13.2 (11.0-16.0) % Plt Count 204 (160-400) X10*3/uL MPV 10.1 (9.4-12.3) fL Immature Gran % (Auto) 0.2 (0.0-0.4) % Neut % (Auto) 57.9 (45-73) % Lymph % (Auto) 31.3 (20-40) % [place] % (Auto) 9.0 (2-11) % Eos % (Auto) 1.0 (0-4) % Baso % (Auto) 0.6 (0-2) % Lymph # (Auto) 1.5 (1.2-4.9) X10*3/uL [place] # (Auto) 0.4 (0.1-1.2) X10*3/uL Eos # (Auto) 0.1 (0.0-0.4) X10*3/uL Baso # (Auto) 0.0 (0.0-0.2) X10*3/uL Abs Immat Gran (auto) 0.01 (0.00-0.03) X10*3/uL Absolute Neuts (auto) 2.8 (2.0-8.3) x10*3/uL Absolute Nucleated RBC 0.000 (0.0-0.012) X10*3/uL Nucleated RBC % (auto) 0.0 (0.0-0.2) /100WBC Sodium 138 (135-145) mmol/L Potassium 3.7 (3.3-5.1) mmol/L Chloride 107 (96-108) mmol/L Carbon Dioxide 26 (22-29) mmol/L Anion Gap 9 L (12-20) BUN 10 (9-16) mg/dL Creatinine 0.61 (0.5-1.4) mg/dL Estim Creat Clear Calc 97.7 Estimated GFR > 60 Random Glucose 79 (60-115) mg/dL Calcium 8.7 (8.4-10.2) mg/dL Total Bilirubin 0.4 (0.0-1.0) mg/dL AST 19 (5-31) U/L ALT 14 (0-31) U/L Alkaline Phosphatase 48 (39-117) U/L Total Protein 6.6 (6.5-8.0) g/dL Albumin 4.1 (3.5-5.0) g/dL Beta HCG, Quant < 2 mIU/mL Urine Color Yellow Urine Appearance Clear Urine pH 6.5 (5.0-9.0) Ur Specific [place] >= 1.030 H (1.005-1.025) Urine Protein Negative (Neg-Trace) mg/dL Urine Glucose (UA) 250 H (Negative) mg/dL Urine Ketones Trace (Negative) mg/dL Urine Blood Negative (Negative) Urine Nitrite Negative (Negative) Ur Leukocyte Esterase Negative (Negative) Independent Interpretation I performed an independent interpretation of an: Ultrasound Radiology Impression Discussion of test interpretation with radiology: I have reviewed the radiologist's reading. Discharge Plan Discharge Clinical Impression: Ovarian cyst Patient Disposition: Home, Self-Care Instructions: Ovarian Cyst (ED) Additional Instructions: Take tylenol 1000mg every 8 hours and ibuprofen 400mg every 8 hours. 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 US report did not show any signs of ovarian torsion. Prescriptions: New oxycodone 5 mg tablet 5 mg PO TID PRN (Reason: pain) Qty: 14 0RF Rx Instructions: Partial Fill upon patient request. ondansetron 4 mg tablet,disintegrating 4 mg PO Q8H PRN (Reason: nausea and vomiting) Qty: 14 0RF No Action magnesium oxide 400 mg magnesium capsule 400 mg PO DAILY Qty: 30 3RF escitalopram oxalate 5 mg tablet 5 mg PO DAILY Qty: 30 6RF ibuprofen 400 mg tablet 400 mg PO Q6H PRN (Reason: pain) Qty: 14 0RF valacyclovir 1 gram tablet 1,000 mg PO TID 7 Days Qty: 21 0RF albuterol sulfate 90 mcg/actuation aerosol powdr breath activated 1 inh inhalation Q4-6H PRN gabapentin 100 mg capsule See Rx Instructions PO BEDTIME Qty: 90 6RF Rx Instructions: 1-3 caps orally bedtime; riboflavin (vitamin B2) 100 mg tablet 400 mg PO QAM Qty: 120 6RF Interventions: ED Discharge Assessment Last Done: 08/31/25 19:14 Discharge Date/Time: 08/31/25 19:15 Print Language: Zimbabwean
[2025-08-31 19:14] VITALS: BP 134/86; PULSE 81; RESP 16; TEMP 36.7; O2SAT 100
--- OUTSIDE RECORDS SUMMARY | 2025-09-01 00:59 | XMS_ITS | Data Portability ---
Author Organization 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 She has had approximately 1 year of gradual onset symptoms. She complains primarily of superior and lateral sided shoulder pain. She does occasionally get pain that goes down her arm. She has tried ibuprofen, rest and activity modification. No prior shoulder surgeries or major trauma. She also complains of nighttime pain awakes her from sleep. Rest makes her pain better while repetitive lifting and reaching make her pain worse. I previously evaluated her in March 2023 and performed a subacromial steroid injection, which almost completely alleviated her symptoms until recently. 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 I independently reviewed the outside MRI of the left shoulder dated 03/02/2023. There is signal hyperintensity at the greater tuberosity along with some insertional increased signal of the anterior leading edge supraspinatus consistent with tendinosis versus possible small insertional tear. The rotator cuff was otherwise intact. Subscapularis intact. Biceps tendon intact. No significant acromioclavicular joint arthrosis. Anterior and posterior labrum intact. Supra labrum intact. Cartilage of the glenohumeral joint intact. I reviewed previous X-rays ordered, obtained and reviewed at [facility] from March 2023. These images included Grashey, scapular outlet and axillary views of the left shoulder. No acute fractures or dislocations. Normal glenohumeral joint space. Normal acromial humeral distance. Mild lateral clavicle spurring. No acromioclavicular joint arthrosis. She has a past medical history of asthma, depression and anxiety. She takes Lexapro. She has a sensitivity to narcotics. She is and employed. She denies tobacco use. No personal or family history of blood clots. Past medical, surgical, family and social history; Medications, Allergies and 12-point review of systems have been reviewed, updated and charted. Physical Examination: Height and weight as noted in chart. Constitutional: Patient pleasant, well appearing and in NAD. Mental status: Patient is alert and oriented to person, place and time. No short-term memory deficits. Psychiatric: Mood and affect are appropriate. Head: Normocephalic and atraumatic. Exterior inspection of the ears and nose was unremarkable. Hearing grossly intact. Eyes: Sclera are not blue. 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 Full extraocular motion. Neck: Supple with age-appropriate ROM. No tracheal deviation. No obvious JVD. Respiratory: Non-labored breathing. Symmetric excursion. No audible wheezing or crackles. Skin: No rashes, lesions, wounds to the upper extremities. Normal turgor and coloration. Musculoskeletal: On examination of the left shoulder, there is no effusion, erythema or ecchymosis. Active shoulder elevation to 170 on the left compared to 175 on the right. External rotation to 60 bilaterally. Internal rotation to the thoracolumbar junction. Positive pain signs on the left. 5/5 strength on rotator cuff testing. Positive acromioclavicular joint and biceps tenderness. Procedure: Injection of Steroid and Anesthetic, Subacromial Space All reasonable risks and benefits of injection were discussed. Risks include bleeding, infection, non-relief of symptoms, recurrence of symptoms, allergic type reaction, scarring, fat atrophy, and hyperglycemia. After obtaining consent, the left posterior shoulder was prepped in sterile fashion using an alcohol swab. The skin was anesthetized with ethyl chloride spray, wiped again with alcohol, and an injection of 1cc of Kenalog 40 and 4cc s of Lidocaine 1% was performed using a 22-gauge needle into the subacromial space. The medication flowed freely and the patient tolerated this procedure well. The patient was instructed to avoid strenuous activity following the injection for approximately 24 to 48 hours, and then a gradual return to normal activities is allowed. 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 I discussed etiology of the patient's symptoms with her at length today. I discussed options both operative and nonoperative. She has elected to continue a conservative course at this time. This included a repeat subacromial injection of steroid to the symptomatic shoulder today that the patient tolerated very well. I stressed the importance of activity modification with avoidance of exacerbating activities including heavy lifting overhead or lifting heavy away from the body. I discussed good lifting mechanics. I also recommended a low-dose oral anti-inflammatory such as ibuprofen [id number] and/or Tylenol as needed. I referred her to physical therapy with an impingement and periscapular strengthening protocol. Should symptoms fail to improve and/or recur despite these conservative measures over the next 3-4 months, I recommend they call back for another visit. We did briefly discuss the role of left shoulder arthroscopy surgery should continue conservative treatment fail. All questions and concerns were addressed. [email or web address] Not available 05/11/2024 10:01:55 Plan of Treatment Reminders Order Date Submit Date Provider Last Modified By Organization Details Last Modified Time Details Appointments None recorded. Lab None recorded. Referral physical therapist referral - PHYSICAL THERAPY REFERRAL ICD-10: M75.42(left ) 1. Rotator cuff strengtheni ng program. 2. Scapular stabilizati on program including strengtheni ng, mobilizatio n, and propriocept ion. 3. Soft tissue modalities as indicated. 4. Home exercise program. 5. Therapeutic exercises: all exercises prn per therapist. 6. Manual therapy: all manual therapy prn per therapist. Allow 2-3 visits a week for 6-8 weeks. Completed by: 2023 024 [email or web address] 4 [facility] [place], [address] [place], [address], 4 11:46:31 Procedures None recorded. Surgeries None recorded. Imaging None recorded. Medication Orders None recorded. Patient TargetsNo targets recorded. Patient InstructionsNo instructions recorded. Reason for Referral Physical Therapist Referral for Impingement syndrome of left shoulder region PHYSICAL THERAPY REFERRAL ICD-10: M75.42(left)1. Rotator cuff strengthening program.2. Scapular stabilization program including strengthening, mobilization, and proprioception.3. Soft tissue modalities as indicated.4. Home exercise program.5. Therapeutic exercises: all exercises prn per therapist.6. Manual therapy: all manual therapy prn per therapist.Allow 2-3 visits a week for 6-8 weeks.Completed by: Referring Physician: Saurav Palacios, Orthopedic Surgery, [id number] Encounter Date: 05/11/2024 Results Created Date Observation Date Name Description Value Unit Range Abnormal Flag Note LastModifiedBy Organization Detail LastModifiedTime 06/16/2003/02/2023 imagi ng/dino pan tic resul t No observ ation record ed. [email or web address] Not Available 05/20 04:36:43 Result Notes None recorded. Procedures Surgical History Date Name Laterality Status Provider Name and Address Organization Details Recorded Time 4 Sports Shoulder completed Saurav Palacios MD [address] [place] [address] [address], [place], [address], [facility] 05/11/2024 10:02:02 Imaging Results None recorded. Procedure Notes None recorded. Medical Equipment None Reported. Allergies Allergen ID Allergen Name Allergen Category Reaction Reaction Severity Criticality Documentation Date Start Date Code Code System Note Provider Name and Address Organization Details Recorded Time 487697 doxycycli ne hyclate medicatio n Not available Not available Not available 12/20/20232022 41413 RxNorm Not Available [facility] 15:37:40 027017 acetamino phen / oxycodone medicatio n Not available Not available Not available 12/20/20232022 32939 3 RxNorm Not Available [facility] 15:37:40 Medications Name Sig Start Date Stop Date Status Note LastModified by Organization Details LastModified Time magnesium oxide 400 (240 mg) mg tabs active Not Available Not Available Not Available albuterol sulfate 2.5 mg/3 mL (0.083 %) solution for nebulization INHALE 3 ML EVERY 6 HOURS NEEDED FOR 30 DAYS active Not Available Not Available No t Available benzonatate 200 mg capsule TAKE 1 CAPSULE BY MOUTH THREE TIMES A DAY NEEDED FOR COUGH FOR 10 DAYS active Not Available Not Available Not Available prednisone 20 mg tablet TAKE 2 TABLETS BY MOUTH DAILY X3 DAYS active Not Available Not Available No t Available zolmitriptan 5 mg tablet 1 TABLET BY MOUTH ONCE NEEDED FOR MIGRAINE HEADACHE,IN STR:MAY REPEAT DOSE ONCE IN 2 HOURS active Not Available Not Available No t Available magnesium oxide 400 mg (241.3 mg magnesium) tablet TAKE 1 TABLET BY MOUTH EVERY DAY active Not Available Not Available No t Available lorazepam 0.5 mg tablet TAKE 1 TO 2 TABLETS AT BEDTIME NEEDED ORALLY ONCE A DAY 7 DAYS active Not Available Not Available No t Available hydrocodone 7.5 mg-acetamino phen 325 mg tablet TAKE 1 TABLET BY MOUTH EVERY 6 HOURS NEEDED FOR PAIN FOR UP TO 7 DAYS. active Not Available Not Available N ot Available sertraline 50 mg tablet TAKE 0.5 TABLETS FOR 2 WEEKS, THEN 1 TABLET THEREAFTER ORALLY ONCE A DAY 30 DAYS active Not Available Not Available No t Available rizatriptan 5 mg tablet PLEASE SEE ATTACHED FOR DETAILED DIRECTIONS active Not Available Not Available N ot Available tobramycin 0.3 %-dexamethas one 0.1 % eye drops,suspen riley INSTILL 1 DROP INTO RIGHT EYE TWICE A DAY SHAKE BOTTLE WELL BEFORE EACH USE active Not Available Not Available No t Available escitalopram 20 mg tablet TAKE 1 TABLET BY MOUTH EVERY DAY FOR 30 DAYS active Not Available Not Available No t Available bupropion HCl XL 150 mg 24 hr tablet, extended release TAKE 1 TABLET BY MOUTH EVERY DAY IN THE MORNING FOR 30 DAYS active Not Available Not Available No t Available escitalopram 5 mg tablet TAKE 1 TAB ORALLY DAILY active Not Available Not Available No t Available topiramate 50 mg tablet TAKE 1 TABLET BY MOUTH EVERYDAY AT BEDTIME active Not Available Not Available No t Available Flovent HFA 110 mcg/actuatio n aerosol inhaler INHALE 2 PUFFS INTO THE LUNGS TWICE A DAY FOR 30 DAYS active Not Available Not Available Not Available Flovent HFA 220 mcg/actuatio n aerosol inhaler TAKE 2 PUFFS EVERY MORNING active Not Available Not Available No t Available Aerochamber Plus Flow-Vu USE DIRECTED active Not Available Not Available No t Available Nurtec ODT 75 mg disintegrati ng tablet TAKE 1 TABLET BY MOUTH ONCE, NEEDED FOR MIGRAINE HEADACHE active Not Available Not Available No t Available Vitals Date Recorded Body height Body mass index (BMI) Body weight Provider Name and Address Organization Details Last Updated DateTime 05/11/2024 152.4 cm 39.1 kg/m2 47750.47 g NADER ARAUZ [place] - [facility] 05/11/2024 09:43:54 Social History None recorded. Functional Status None recorded. Mental Status None recorded. Family History Nothing Reported. Medical History No medical history recorded. Gynecological HistoryNo gynecological history recorded. Obstetrics History GPAL:G 0 P 0 0 0 0 Past Encounters Encounter ID Performer Location Encounter Start Date Encounter Closed Date Diagnosis/Indication Diagnosis SNOMED-CT Code Diagnosis ICD10 Code Diagnosis IMO Codes Diagnosis Note [id number] Saurav Palacios MD [facility] [address] [place] [address] 05/11/2024 09:20:17 06/02/2024 13:55:36 Impingement syndrome of left shoulder region 2431512247 28468 M75.42 Health Concerns Section Related Observation LastModified by Organization Detai ls LastModified Time None Recorded Concern Status LastModified by Organization Details LastModified Time None Recorded Advance Directives Directive None Recorded Payers Insurance Date Sequence Insurance Name Policy Number Policy [place] Covered Member ID [place] Member ID Guarantor Name 06/02/2024 1 [facility] [employer] - TOGETHER (MEDICAID HMO) [id number] Mary Perez [id number] Mary Perez OBGyn Episode No OBEpisode recorded.
== END 2025-08-31 19:15 | disposition home or self-care (01) ==
PROVIDERS: Registered Nurse Emergency; Emergency Provider Student in an Organized Health Care Education/Training Program
DX: N83.201 Unspecified ovarian cyst, right side (principal); N83.202 Unspecified ovarian cyst, left side; N93.9 Abnormal uterine and vaginal bleeding, unspecified; R10.32 Left lower quadrant pain; R11.0 Nausea; Z97.5 Presence of (intrauterine) contraceptive device
CPT/HCPCS: 36415; 76830; 76856; 80053; 81003; 84702; 85025; 99283; 99284

== ENCOUNTER → 2025-08-31 16:20 | Outpatient (BNV) | payer OTHER, SELFPAY | PROVIDERS: Emergency Provider Student in an Organized Health Care Education/Training Program; Visit Provider Radiology Diagnostic Radiology | DX: N93.9 Abnormal uterine and vaginal bleeding, unspecified (principal); N83.202 Unspecified ovarian cyst, left side | CPT/HCPCS: 76830; 76856 ==

== ENCOUNTER 2025-09-19 15:54 | Emergency (ER) | payer OTHER, SELFPAY ==
--- NOTE | ~2025-09-19 | CT_ITS ---
CLINICAL HISTORY: left-sided abdominal pain, R O kidney stone. CT abdomen and pelvis without contrast Comparison: None provided Findings: LIMITED CHEST: Lung bases are clear. LIVER: Hypoattenuating lesion at the hepatic dome, may represent a cyst. BILIARY: No gallbladder wall thickening, radiopaque stone, or ductal dilatation. PANCREAS: No mass or ductal dilatation. SPLEEN: No splenomegaly. KIDNEYS: No hydronephrosis or radiopaque stone. ADRENALS: No nodule. VASCULAR: No aneurysm. RETROPERITONEUM: No lymphadenopathy or mass. BOWEL/MESENTERY: Postsurgical changes of gastric bypass. Several loops of mildly dilated small bowel in the left hemiabdomen without definite transition point. ABDOMINAL WALL: No mass or significant abnormality. URINARY BLADDER: No focal wall thickening. PELVIC NODES: No pelvic lymphadenopathy. PELVIC ORGANS: Intrauterine device in place. Right-sided cystic adnexal lesions measuring up to 3.6 cm, better evaluated on same day ultrasound pelvis. BONES: No acute fracture. OTHER: Negative. IMPRESSION: No nephrolithiasis or hydronephrosis. Postsurgical changes of gastric bypass. Several loops of dilated small bowel in the left hemiabdomen without transition point, may represent ileus versus developing small-bowel obstruction. Ovarian cysts, better evaluated on same-day ultrasound pelvis. This document has been electronically signed by: Britt Stein MD on 09/19/2025 19:58:49
--- NOTE | ~2025-09-19 | US_ITS ---
CLINICAL HISTORY: LLQ pain, known 5.4cm hem cyst US pelvis transabdominal and transvaginal with Doppler Comparison: US - US PELVIC AND TRANSVAGINAL - 08/31/25 17:39 EST Findings: Transabdominal scanning performed for overall anatomy. Transvaginal scanning performed for additional detail. Anteverted uterus is 9.1 cm length. Normal myometrium. Intrauterine device in appropriate position. Right ovary 5.9 x 3.6 x 3.6 cm. Anechoic cysts, measuring up to 3.6 cm. Left ovary 3.6 x 2.5 x 3.2 cm. Previous left hemorrhagic cyst has resolved. Largest left anechoic cyst measures 2.2 x 1.9 x 1.9 cm. Normal color Doppler with arterial/venous spectral tracing of both ovaries. No free fluid. IMPRESSION: 1. No evidence of ovarian torsion. 2. Bilateral simple appearing anechoic ovarian cysts. Resolution of previous left hemorrhagic cyst. This document has been electronically signed by: Britt Stein MD on 09/19/2025 18:44:59
[2025-09-19 16:27] VITALS: BP 116/53; PULSE 82; RESP 18; TEMP 36.2; O2SAT 100; BMI 24.6
--- NOTE | 2025-09-19 16:33 | ED_ITS ---
HPI - General Adult General Chief complaint: Abdominal Pain Stated complaint: ovarian cyst Time Seen by Provider: 09/19/25 17:47 Source: patient and family Mode of arrival: ambulatory Limitations: no limitations History of Present Illness ED Provider: DR. Hawley HPI narrative: 40-year-old female came in for evaluation of left side pelvic pain for the past few weeks patient had similar presentation found to have 5.5 cm complex hemorrhagic cyst that the patient follow-up with her OBGYN at [facility] for, patient returned today for persistent of left lower abdominal pain patient described it as felt stabbing pain to the left lower quadrant area felt like something popped, no nausea, no vomiting, no fever, no chills, history of C- sections, s/p IUD. No dysuria, no frequency urination, no vaginal discharge or bleed, no diarrhea, no blood in the stool. Related Data Home Medications ?Medication ?Instructions ?Recorded ?Confirmed albuterol sulfate 90 mcg/actuation 1 inh inhalation Q4 -6H PRN 02/11/23 02/11/23 breath activated powder inhaler Previous Rx's ?Medication ?Instructions ?Recorded gabapentin 100 mg capsule See Rx Instructions PO BEDTI ME #90 02/11/23 caps riboflavin (vitamin B2) 100 mg 400 mg (4 x 100 mg) PO QAM #120 02/11/23 tablet tabs magnesium oxide 400 mg PO DAILY #30 caps 09/09 escitalopram oxalate 5 mg tablet 5 mg PO DAILY #30 tab s 09/28/23 ibuprofen 400 mg tablet 400 mg PO Q6H PRN pain #14 t abs 06/21/25 valacyclovir 1 gram tablet 1,000 mg PO TID 7 days #21 tabs 06/21/25 ondansetron 4 mg disintegrating 4 mg PO Q8H PRN nausea and 08/31/25 tablet vomiting #14 tabs oxycodone 5 mg tablet 5 mg PO TID PRN pain #14 tab s 08/31/25 Allergies Allergy/AdvReac Type Severity Reaction Status Date / Time acetaminophen (From Percocet) Allergy Mild Vomiting Verified 09/19/25 16:29 doxycycline Allergy Mild Stomach Verified 09/19/25 16:29 Upset oxycodone (From Percocet) Allergy Mild Vomiting Verified 09/19/25 16:29 Review of Systems 2 Review of Systems: All other systems are reviewed and are negative Constitutional: Reports as per HPI and Reports no additional constitutional complaints Eyes: Reports as per HPI and Reports no additional eye complaints Reports system reviewed and no additional complaints, except as documented Cardiovascular: Reports as per HPI and Reports no additional cardiovascular complaints Respiratory: Reports as per HPI and Reports no additional respiratory complaints Gastrointestinal: Reports as per HPI and Reports no additional gastrointestinal complaints Genitourinary: Reports no additional female genitourinary complaints Musculoskeletal: Reports no additional musculoskeletal complaints Skin/Breast: Reports system reviewed and no additional complaints, except as docu Psychiatric: Reports no additional psychiatric complaints Endocrine: Reports no additional endocrine complaints Hematologic/Lymphatic: Reports no additional hematologic/lymphatic complaints Allergic/Immunologic: Reports no additional allergic/immunologic complaints Reports system reviewed and no additional complaints, except as documented and Reports Abnormal speech present [facility] Past Medical History Medical History Chronic migraine without aura Syncope Restless legs syndrome (RLS) Heel spur Iron deficiency anemia Asthma Depression Anxiety Surgical History Hx of tonsillectomy History of tubal ligation History of gastric bypass History of carpal tunnel surgery Previous section Family History Family History Mother Depression Anxiety Breast cancer Hypertension Diabetes Maternal Grandmother Breast cancer Social History Social History Alcohol intake: current Patient Tobacco Use Status: Former Tobacco user Tobacco use type: Cigarette Use of substances other than those prescribed or required for medical reasons: No Substance Use Type: Marijuana Advance Directives: No Advance Directives Information Provided: Yes Do you have a plan to hurt others: No Plan Patient : No Physical Exam ED Vital Signs: Vital Signs - 24 hr 09/19/25 16:27 09/19/25 18:43 09/19/25 19:16 Temperature 97.2 F 97.9 F Pulse Rate 82 85 Respiratory Rate 18 17 18 Blood Pressure 116/53 L 131/93 H Pulse Oximetry 100 100 Oxygen Delivery Method Room Air Room Air 09/19/25 21:58 Temperature 98.3 F Pulse Rate 75 Respiratory Rate 16 Blood Pressure 128/79 Pulse Oximetry 100 Oxygen Delivery Method Room Air BMI result Body Mass Index 24.6 Vital signs have been reviewed and appear to be correct. Blood pressure elevated. Heart rate normal. Respiratory rate normal. Temperature normal. Oxygen saturation normal. Appearance: Alert. Oriented X3. No acute distress. Head: Normal external exam. Normocephalic. Atraumatic. No Jesus signs noted. No raccoon eyes noted Eyes: PERRLA. EOMI. Conjunctiva and sclera normal. Eyelids normal. ENT: TM's Normal. Pharynx normal. Uvula midline. Moist mucous membranes. No trismus noted. No drooling noted. No muffled voice noted. Neck: Normal inspection. Neck supple. FROM. No adenopathy. Thyroid Normal. No meningeal signs. No neck mass noted. CVS: Normal heart rate and rhythm. Heart sound normal. No murmurs noted. Pulses normal throughout. Respiratory: No respiratory distress. Painless inspiration. Breath sounds normal. No wheezes/rales/rhonchi noted. Chest nontender. No accessory muscle usage noted or decreased air movement noted. Abdomen: Soft and nontender. Bowel sounds normal in all 4 quadrants. No distention noted. No organomegaly noted. No visible injury noted. Pelvic exam: Deferred for the ultrasound. Back: No CVA tenderness. Full range of motion noted. Skin: Skin warm and dry. Normal skin color. Normal skin turgor. No rashes/lesions/lacerations noted. Extremities: No lower extremity edema. Extremities exhibit normal range of motion. Extremities nontender. Neuro: Oriented X 3. Cranial nerve exam: II-XII are grossly intact No motor deficit. No sensory deficit. Reflexes normal. Course Course Course Narrative: RME: 30-year-old female with history of left ovarian cyst presents to ED for left ovarian quadrant pain. Patient has states feeling a pop left lower quadrant has had pain ever since. Labs UA ordered. Reevaluation(s) Reevaluation #1: sizable left ovarian cyst that is disappeared on today's ultrasound, ultrasound is showing normal ovaries with no suspicion of torsion, labs are unremarkable, patient already feels better pain is 5/10, could be secondary to rupture of the left ovarian hemorrhagic complex cyst patient need further radiographic study to rule out other intra-abdominal pathology. CT abdomen and pelvis reveals multiple small bowel loops dilatation which could be a small bowel obstruction without transition point could be ileus, Dr. Cornell has been contacted for consultation still waiting for his response, case signed out to Dr. Singer to follow-up with Dr. Cornell recommendations. Time: 19:13 Reevaluation #2: Enmanuel: The case was signed out to me at change of shift by the previous emergency physician. The patient is a 40-year-old female with a history of fairly remote bariatric surgery done several years ago at the [facility]. The patient says she has not been in contact with her bariatric surgeon for several years. She presented to the emergency room here a few weeks ago on August 31 with lower abdominal pain was found to have a large left-sided ovarian cyst. She was discharged from the emergency room in followed up with the pipe smoker machine operator at [facility] with a plan for watchful waiting. She says that she has had constant ongoing pain since August 31. She returned to the emergency room after a worsening of her pain this morning and ultimately came back to the emergency room today. Here in the emergency room she has had an ultrasound of her pelvis which shows essentially a resolution of the previously large left-sided ovarian cyst. She had unremarkable blood work. She also had a CT scan that showed equivocal findings of a possible early small-bowel obstruction or ileus. I went to see the patient. She said that she was having ongoing pain but that she has been having ongoing pain for several weeks. He says that not long before I went to see her she had eaten a turkey sandwich because she was very hungry. The patient is abdomen seems fairly benign. Given that she is eating food spontaneously my suspicion for a bowel obstruction is very low. Since she has no connection with our bariatric surgery practice I do not make further efforts to get any input from our bariatric surgery practice but instead I felt that she could be discharged. She was given a dose of ketorolac at discharge and should follow up with her pipe smoker machine operator as she has no other local provider. She is given contact information for local PCP practices. She is encouraged to try to get a primary care doctor. She was also given the contact information for our bariatric surgery Clinic in case she is able to establish herself with a local bariatric clinic. Time: 22:05 Medications Administered Discontinued Medications Generic Name Dose Route Start Last Admin Trade Name Freq PRN Reason Stop Dose Admin Ketorolac Tromethamine 10 mg 09/19/25 21:24 09/19/25 21:48 Ketorolac Tromethamine 15 Mg/Ml Vial IVPUSH 09/19/25 21:25 10 mg ONCE ONE Administration Morphine Sulfate 2 mg 09/19/25 18:24 09/19/25 18:43 Morphine Sulfate 4 Mg/Ml Cartridge IVPUSH 09/19/25 18:25 2 mg ONCE ONE Administration Protocol Medical Decision Making Differential Diagnosis Differential Diagnoses: The differential diagnosis associated with the presentation includes ( Renal colic, ovarian torsion, ovarian cyst, UTI, pyelonephritis, Kidney stone, colitis, diverticulitis, constipation.) Admission/Observation Consideration of admission/observation: Escalation of care including admission/observation considered Lab Data MDM Lab Attestation statement: I reviewed the patient's lab results. 09/19/25 18:18 09/19/25 18:18 Labs: Lab Results 09/19/25 09/19/25 Range/Units 18:18 18:45 WBC 4.2 L (4.8-10.8) X10*3/uL RBC 4.24 (4.20-5.50) X10*6/uL Hgb 13.9 (12.0-16.0) g/dl Hct 40.4 (37.0-47.0) % MCV 95.3 (80.0-98.0) fL MCH 32.8 (27.0-33.0) pg MCHC 34.4 (31.0-35.0) g/dl RDW 12.8 (11.0-16.0) % Plt Count 237 (160-400) X10*3/uL MPV 9.5 (9.4-12.3) fL Immature Gran % (Auto) 0.2 (0.0-0.4) % Neut % (Auto) 57.8 (45-73) % Lymph % (Auto) 30.1 (20-40) % [place] % (Auto) 9.8 (2-11) % Eos % (Auto) 1.4 (0-4) % Baso % (Auto) 0.7 (0-2) % Lymph # (Auto) 1.3 (1.2-4.9) X10*3/uL [place] # (Auto) 0.4 (0.1-1.2) X10*3/uL Eos # (Auto) 0.1 (0.0-0.4) X10*3/uL Baso # (Auto) 0.0 (0.0-0.2) X10*3/uL Abs Immat Gran (auto) 0.01 (0.00-0.03) X10*3/uL Absolute Neuts (auto) 2.4 (2.0-8.3) x10*3/uL Absolute Nucleated RBC 0.000 (0.0-0.012) X10*3/uL Nucleated RBC % (auto) 0.0 (0.0-0.2) /100WBC Sodium 140 (135-145) mmol/L Potassium 3.9 (3.3-5.1) mmol/L Chloride 106 (96-108) mmol/L Carbon Dioxide 28 (22-29) mmol/L Anion Gap 10 L (12-20) BUN 12 (9-16) mg/dL Creatinine 0.56 (0.5-1.4) mg/dL Estim Creat Clear Calc 106.8 Estimated GFR > 60 Random Glucose 86 (60-115) mg/dL Calcium 9.0 (8.4-10.2) mg/dL Total Bilirubin 0.5 (0.0-1.0) mg/dL AST 18 (5-31) U/L ALT 15 (0-31) U/L Alkaline Phosphatase 50 (39-117) U/L Total Protein 6.8 (6.5-8.0) g/dL Albumin 4.3 (3.5-5.0) g/dL Beta HCG, Quant < 2 mIU/mL Urine Color Yellow Urine Appearance Clear Urine pH 6.0 (5.0-9.0) Ur Specific Gage >= 1.030 H (1.005-1.025) Urine Protein Negative (Neg-Trace) mg/dL Urine Glucose (UA) Negative (Negative) mg/dL Urine Ketones 15 (Negative) mg/dL Urine Blood Negative (Negative) Urine Nitrite Negative (Negative) Ur Leukocyte Esterase Negative (Negative) Urine Test NEGATIVE (NEGATIVE) Independent Interpretation I performed an independent interpretation of an: Ultrasound ( Pelvic ultrasound:Right ovary 5.9 x 3.6 x 3.6 cm. Anechoic cysts, measuring up to 3.6 cm. Left ovary 3.6 x 2.5 x 3.2 cm. Previous left hemorrhagic cyst has resolved. Largest left anechoic cyst measures 2.2 x 1.9 x 1.9 cm. Normal color Doppler with arterial/venous spectral tracing of both ovaries) Radiology Impression Discussion of test interpretation with radiology: I have reviewed the radiologist's reading. Discharge Plan Discharge Clinical Impression: Left sided abdominal pain Patient Disposition: Home, Self-Care Additional Instructions: Your ultrasound shows that the cyst on your left ovary is much smaller. I think the findings on your CAT scan are very uncertain significance and may not represent anything concerning. I would recommend eating a simple diet over the next couple of days, relying mostly unclear fluids and simple foods like toast. My hope is you will be feeling better over the next couple of days and then you may eat more complex foods. Please plan on following up with your pipe smoker machine operator. Please work on finding a primary care doctor. You has been given some contact information for some local primary care offices. You may also try to get connected with a local bariatric surgery Clinic. The contact information for the local bariatric clinic is provided as well. Return to the emergency room if significantly worse. Prescriptions: No Action magnesium oxide 400 mg magnesium capsule 400 mg PO DAILY Qty: 30 3RF escitalopram oxalate 5 mg tablet 5 mg PO DAILY Qty: 30 6RF ibuprofen 400 mg tablet 400 mg PO Q6H PRN (Reason: pain) Qty: 14 0RF valacyclovir 1 gram tablet 1,000 mg PO TID 7 Days Qty: 21 0RF oxycodone 5 mg tablet 5 mg PO TID PRN (Reason: pain) Qty: 14 0RF Rx Instructions: Partial Fill upon patient request. ondansetron 4 mg tablet,disintegrating 4 mg PO Q8H PRN (Reason: nausea and vomiting) Qty: 14 0RF albuterol sulfate 90 mcg/actuation aerosol powdr breath activated 1 inh inhalation Q4-6H PRN gabapentin 100 mg capsule See Rx Instructions PO BEDTIME Qty: 90 6RF Rx Instructions: 1-3 caps orally bedtime; riboflavin (vitamin B2) 100 mg tablet 400 mg PO QAM Qty: 120 6RF Referrals: [facility] Primary Care, [place] [Provider Group, Internal Medicine] [facility] Primary Care, [place] [Provider Group, Internal Medicine] [facility] Weight Management Therapy [Provider Group, Weight Management Therapy] [facility] Primary Care, [facility] [Provider Group, Primary Care] [facility] Felecia Gomez MD [Physician, FARM CROPS TEACHER] Interventions: ED Discharge Assessment Last Done: 09/19/25 21:58 Discharge Date/Time: 09/19/25 21:58 Print Language: Ukrainian
[2025-09-19 18:22] LABS: MANUAL DIFF FLAG NO
[2025-09-19 18:24] LABS: Hematocrit 40.4 % (37.0-47.0); Hemoglobin 13.9 g/dl (12.0-16.0); Imm Gran Abs Auto 0.01 X10*3/uL (0.00-0.03); Imm Gran Pct Auto 0.2 % (0.0-0.4); Lymphocytes Absolute Auto 1.3 X10*3/uL (1.2-4.9); Mean Corpuscular HGB Conc 34.4 g/dl (31.0-35.0); Mean Corpuscular Hemoglobin 32.8 pg (27.0-33.0); Mean Corpuscular Volume 95.3 fL (80.0-98.0); NRBC Abs Auto 0.000 X10*3/uL (0.0-0.012); NRBC Pct Auto 0.0 /100WBC (0.0-0.2); Platelet Count 237 X10*3/uL (160-400); Red Blood Count 4.24 X10*6/uL (4.20-5.50); White Blood Count 4.2 X10*3/uL (4.8-10.8)
[2025-09-19 18:43] VITALS: RESP 17
[2025-09-19 18:43] LABS: Alanine Aminotransferase 15 U/L (0-31); Albumin Level 4.3 g/dL (3.5-5.0); Alkaline Phosphatase 50 U/L (39-117); Anion Gap 10 (12-20); Aspartate Amino Transferase 18 U/L (5-31); Blood Urea Nitrogen 12 mg/dL (9-16); Calcium 9.0 mg/dL (8.4-10.2); Carbon Dioxide 28 mmol/L (22-29); Chloride 106 mmol/L (96-108); Creatinine Clr Calc Pharmacy 106.8; Estimated Glomerular Filt Rate > 60; Potassium 3.9 mmol/L (3.3-5.1); Sodium 140 mmol/L (135-145); Total Protein 6.8 g/dL (6.5-8.0)
[2025-09-19 18:59] LABS: Appearance Urine Clear; Glucose Urine UA Negative (Negative); PH 6.0 (5.0-9.0); Specific Gravity - Urine >= 1.030 (1.005-1.025)
[2025-09-19 19:00] LABS: UPreg QC Valid YES
--- OUTSIDE RECORDS SUMMARY | 2025-09-19 19:08 | XMS_ITS | Data Portability ---
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 These images included Grashey, [...] grossly intact. Eyes: Sclera are not blue. class b driver II-XII are grossly intact. Full extraocular motion. [...] activities is allowed. 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 I referred her to physical therapy with an impingement and periscapular strengthening protocol. Should symptoms fail to improve and/or recur despite these conservative measures over the next 3-4 months, I recommend they call back for another visit. We did briefly discuss the role of left shoulder arthroscopy surgery should continue conservative treatment fail. All questions and concerns were addressed. [email or web address] Not available 05/11/2024 10:01:55 Plan of Treatment [...] weeks. Completed by: 2023 024 [email or web address] [facility] [place], [address] [place], [address], 4 11:46:31 Procedures None recorded. Surgeries None [...] by: Referring Physician: Saurav Palacios, Orthopedic Surgery, [id number] Encounter Date: 05/11/2024 Results Created Date Observation Date Name Description Value Unit Range Abnormal Flag Note LastModifiedBy Organization Detail LastModifiedTime 06/16/2003/02/2023 imagi ng/dino pan tic resul t No observ ation record ed. [email or web address] Not Available 05/20 04:36:43 Result Notes None recorded. Procedures Surgical History Date Name Laterality Status Provider Name and Address Organization Details Recorded Time 4 Sports Shoulder completed Saurav Palacios MD [address] [place] [address] [address], [place], [address], [facility] 05/11/2024 10:02:02 Imaging Results None recorded. Procedure Notes None recorded. Medical Equipment None Reported. Allergies Allergen ID Allergen Name Allergen Category Reaction Reaction Severity Criticality Documentation Date Start Date Code Code System Note Provider Name and Address Organization Details Recorded Time 094414 doxycycli ne hyclate medicatio n Not available Not available Not available 12/20/20232022 29592 RxNorm Not Available [facility] 15:37:40 210243 acetamino phen / oxycodone medicatio n Not available Not available Not available 12/20/20232022 02637 3 RxNorm Not Available [facility] 15:37:40 Medications Name Sig Start Date Stop [...] Updated DateTime 05/11/2024 152.4 cm 39.1 kg/m2 70517.47 g NADER ARAUZ [place] - [facility] 05/11/2024 09:43:54 Social History None recorded. Functional Status None recorded. Mental Status None recorded. Family History Nothing Reported. Medical History No medical history recorded. Gynecological HistoryNo gynecological history recorded. Obstetrics History GPAL:G 0 P 0 0 0 0 Past Encounters Encounter ID Performer Location Encounter Start Date Encounter Closed Date Diagnosis/Indication Diagnosis SNOMED-CT Code Diagnosis ICD10 Code Diagnosis IMO Codes Diagnosis Note [id number] Saurav Palacios MD [facility] [address] [place] [address] 05/11/2024 09:20:17 06/02/2024 13:55:36 Impingement syndrome of left shoulder region [id number] 75533 M75.42 Health Concerns Section Related Observation LastModified by Organization Detai ls LastModified Time None Recorded Concern Status LastModified by Organization Details LastModified Time None Recorded Advance Directives Directive None Recorded Payers Insurance Date Sequence Insurance Name Policy Number Policy Keating Covered Member ID Keating Member ID Guarantor Name 06/02/2024 1 [facility] [employer] - TO[employer] (MEDICAID HMO) [id number] Mary Perez [id number] 1 Mary Perez OBGyn Episode No OBEpisode recorded.
--- OUTSIDE RECORDS SUMMARY | 2025-09-19 19:08 | XMS_ITS | Clinical Summary ---
Author Organization [facility] Prior to 03/17/25 Address [address] [place] [address] Care Team Providers Care Sales And Service Engineer Name Role Phone Guillaume Barkley DO Primary Care Provider [phone] Allergies Active Allergy Reactions Criticality Noted Date [...] Screening (Pap Smear) 2007 COVID-19 Vaccine (3 2024-2 6 season) 2025 08/30/2021, 01/26/2021 Influenza Vaccine (#1) 2025 08/02/2017 Pneumococcal Vaccine Aged Out No long er eligible based on patient's age to complete this topic RSV Ped < 20 months Aged Out No longe r eligible based on patient's age to complete this topic Care Teams Sales And Service Engineer Relationship Specialty Start Date End Date Guillaume Barkley DO [address] [place] [id number] PCP - General Internal Medicine 03/06/22
--- OUTSIDE RECORDS SUMMARY | 2025-09-19 19:08 | XMS_ITS | Clinical Summary ---
Author Organization [facility] Address [address] [place] [address] Care Team Providers Care Blood Coordinator Name Role Phone Guillaume Barkley Primary Care Provider [phone] Allergies Active Allergy Reactions Criticality Noted Date Comments Oxycodone Wuk-Eqzuoxhoe-Lcm Unknown 03/23/2023 Oxycodone-Acetaminophen Unknown,Nausea A nd Vomiting [...] Drivers of Health Virid[place] ual Screening 10/18/2024 Influenza Vaccine (#1) 2025 2, 08/11/2022, 08/25/2021, Additional history exists COVID-19 Vaccine ( - 2024-2 6 season) 2025 08/30/2021, 01/26/2021 DTaP,Tdap,and Td Vaccines (3 - Td or Tdap) 06/22/2025 06/22/2015, 05/13/2012 Procedures * Due to [place] [employer] Distribution law, this organization might not be sharing negative HIV tests. Procedure Name Priority Date/Time Associated Diagnosis Comments PAP SMEAR Routine 11/07/2013 4:14 PM EST from Last 3 Months or Most Recently Relevant to Health Maintenance Results * Due to [place] state law, this organization might not be sharing negative HIV tests. * PAP SMEAR (11/07/2013 4:14 PM EST) Pap smear NEGATIVE/DR DESIREE LUONG OTHER 11/07/2013 4:14 PM EST us Jodi Ramírez HEALTH MAINTENANCE Final Resu lt OTHER from Last 3 Months or Most Recently Relevant to Health Maintenance Insurance [facility] MEDICAID Advance Directives Documents on File Type Date Recorded Patient Pet Groomer Expl anation Advance Directive 11/09/2011 12:00 AM Adva nce Care Directives Advance Directive 11/06/2011 12:00 AM liz [email or web address] Dec Making (Adv.Dir) * Full Code (Latest Code Status on File) Date Activated Date Inactivated Comments 05/20/2023 10:19 AM 05/20/2023 5:01 PM Care Teams Blood Coordinator Relationship Specialty Start Date End Date Guillaume Barkley [address] [place] [id number] PCP - General Internal Medicine 02/03/23
--- OUTSIDE RECORDS SUMMARY | 2025-09-19 19:08 | XMS_ITS | Encounter Summary ---
Author Organization [facility] Address [address] [place] [address] Care Team Providers Care Plaster Helper Name Role Phone Guillaume Barkley Primary Care Provider [phone] Encounter Details Date Type Department Care Team (Late st Contact Info) Description 05/13/2023 [facility] Pre Surgical Evaluation [address] [place] [address] Mychart, Generic Provider [address] [place], [place] [id number] Pre-Operative instructions for surgery 05/20/23- Dr Yang [...] on filedocumented in this encounter Care Teams Plaster Helper Relationship Specialty Start Date End Date MaryanaaspenGuillaume soto [address] [place] [address] PCP - General Internal Medicine 02/03/23 documented as of this encounter
[2025-09-19 19:16] VITALS: BP 131/93; PULSE 85; RESP 18; TEMP 36.6; O2SAT 100
--- NOTE | 2025-09-19 19:19 | PC.NURSE ---
20 g IV right AC
--- NOTE | 2025-09-19 19:23 | PC.NURSE ---
Pt resting comfortably on stretcher, provided with sandwich and juice. Call lovett within reach, all needs met at this time.
[2025-09-19 21:58] VITALS: BP 128/79; PULSE 75; RESP 16; TEMP 36.8; O2SAT 100
== END 2025-09-19 21:58 | disposition home or self-care (01) ==
PROVIDERS: Physician Assistant; Emergency Provider Emergency Medicine
DX: R10.9 Unspecified abdominal pain (principal); R10.21 Pelvic and perineal pain right side; G43.909 Migraine, unspecified, not intractable, without status migrainosus; D50.9 Iron deficiency anemia, unspecified; J45.909 Unspecified asthma, uncomplicated; F32.A Depression, unspecified; F41.9 Anxiety disorder, unspecified; G25.81 Restless legs syndrome; Z87.891 Personal history of nicotine dependence
CPT/HCPCS: 36415; 74176; 76830; 76856; 80053; 81003; 81025; 84702; 85025; 93975; 96374; 96375; 99284; J1885; J2270

== ENCOUNTER → 2025-09-19 17:25 | Outpatient (BNV) | payer OTHER, SELFPAY | PROVIDERS: Emergency Provider Emergency Medicine; Visit Provider Student in an Organized Health Care Education/Training Program | DX: N83.201 Unspecified ovarian cyst, right side (principal); N83.202 Unspecified ovarian cyst, left side | CPT/HCPCS: 93975 ==

== ENCOUNTER 2025-10-09 16:17 | Emergency (ER) | payer OTHER, SELFPAY ==
--- NOTE | ~2025-10-09 | CT_ITS ---
CLINICAL HISTORY: gastric bypass, pain, n v constipation CT abdomen and pelvis with contrast Comparison: CT/SR - CT ABDOMEN PELVIS WO IV CON - 09/19/25 19:23 EST Findings: The lung bases are clear. Right hepatic lobe cyst. Gallbladder, pancreas, spleen, and adrenal glands are within normal limits. No hydronephrosis. Symmetric contrast enhancement of the kidneys. Status post gastric bypass. Oral contrast is seen through small bowel loops in the pelvis. No extraluminal contrast. No bowel obstruction, pneumatosis or pneumoperitoneum. Moderate stool in the right hemicolon. IUD in the endometrial cavity. Right ovarian cyst measuring 4.4 x 2.7 cm. No acute fracture. IMPRESSION: 1. No acute intraabdominal or pelvic pathology. This document has been electronically signed by: Marcie Adams MD on 10/09/2025 22:24:00
[2025-10-09 16:29] VITALS: BP 127/72; PULSE 89; RESP 20; TEMP 36.2; O2SAT 100; BMI 23.7
--- NOTE | 2025-10-09 16:40 | ED.GENADULT ---
HPI - General Adult General Chief complaint: Abdominal Pain Stated complaint: Abdominal pain Time Seen by Provider: 10/09/25 18:12 Source: patient and old records reviewed Mode of arrival: ambulatory Limitations: no limitations History of Present Illness ED Provider: MONICA CHRISTENSEN narrative: 40-year-old female with past medical history of depression, anxiety, iron deficiency anemia, asthma, restless leg syndrome, migraines, prior gastric bypass [place] [address] Lopez at [email or web address] she has not seen him since 2012 she does follow with the [facility] weight loss program but does not see Dr. Sharpe. She was seen here on September 19 due to abdominal pain at that time the CAT scan did show possible developing small bowel obstruction versus ileus but clinically she appear that way she was also recently treated for hemorrhagic left ovarian cyst that resolved. She states she now is belching all the time she is passing gas but she is not having any bowel movements. She does admit that she did take some oxycodone but not that much. She tried [id number] laxative from [employer] that did not help. She states she is here she can not eat and she has not been able to keep anything down she can no longer tolerate the pain. She denies any prior history of her gastric bypass or issues MD complaint: Abdominal pain Onset (ago): week(s) Location: abdomen Radiation: non-radiation Severity: moderate Quality: aching, dull and constant Pain Consistency: constant Relieving factors: none Exacerbating factors: eating Associated symptoms: loss of appetite, malaise and nausea/vomiting Treatments prior to arrival: none Related Data Home Medications ?Medication ?Instructions ?Recorded ?Confirmed albuterol sulfate 90 mcg/actuation 1 inh inhalation Q4-6H PRN 02/11/23 02/11/23 breath activated powder inhaler Previous Rx's ?Medication ?Instructions ?Recorded gabapentin 100 mg capsule See Rx Instructions PO BEDTIME #90 02/11/23 caps riboflavin (vitamin B2) 100 mg 400 mg (4 x 100 mg) PO QAM #120 02/11/23 tablet tabs magnesium oxide 400 mg PO DAILY #30 caps 06/28/23 escitalopram oxalate 5 mg tablet 5 mg PO DAILY #30 tabs 09/28/23 ibuprofen 400 mg tablet 400 mg PO Q6H PRN pain #14 tabs 06/21/25 valacyclovir 1 gram tablet 1,000 mg PO TID 7 days #21 tabs 06/21/25 ondansetron 4 mg disintegrating 4 mg PO Q8H PRN nausea and 08/31/25 tablet vomiting #14 tabs oxycodone 5 mg tablet 5 mg PO TID PRN pain #14 tabs 08/31/25 cyclobenzaprine 10 mg tablet 10 mg PO TID PRN muscle spasm #20 10/09/25 tabs lactulose 10 gram/15 mL oral 20 g (30 mL) PO DAILY PRN 10/09/25 solution (Constulose) constipation #1,200 mL ondansetron 4 mg disintegrating 4 mg PO Q8H PRN nausea and 10/09/25 tablet vomiting #20 tabs Allergies Allergy/AdvReac Type Severity Reaction Status Date / Time acetaminophen (From Percocet) Allergy Mild Vomiting Verified 10/09/25 16:32 doxycycline Allergy Mild Stomach Verified 10/09/25 16:32 Upset oxycodone (From Percocet) Allergy Mild Vomiting Verified 10/09/25 16:32 Review of Systems Review of Systems: Yes all other systems are reviewed and are negative PMFSH Past Medical History Attestation statement: The following information was validated with the patient. Source: old records reviewed Medical History Chronic migraine without aura Syncope Restless legs syndrome (RLS) Heel spur Iron deficiency anemia Asthma Depression Anxiety Surgical History Hx of tonsillectomy History of tubal ligation History of gastric bypass History of carpal tunnel surgery Previous section Family History Family History Mother Depression Anxiety Breast cancer Hypertension Diabetes Maternal Grandmother Breast cancer Social History Social History Alcohol intake: current Patient Tobacco Use Status: Former Tobacco user Tobacco use type: Cigarette Smoked in Last 30 Days: No Use of substances other than those prescribed or required for medical reasons: No Substance Use Type: Marijuana Advance Directives: No Advance Directives Information Provided: No Physical Exam ED Vital Signs: Vital Signs - 24 hr 10/09/25 16:29 10/09/25 20:25 10/09/25 22:39 Temperature 97.2 F 97.8 F 98 F Pulse Rate 89 69 74 Respiratory Rate 20 18 18 Blood Pressure 127/72 120/72 114/76 Pulse Oximetry 100 100 100 Oxygen Delivery Method Room Air Room Air Room Air 10/09/25 22:42 Temperature 98 F Pulse Rate 74 Respiratory Rate 18 Blood Pressure 114/76 Pulse Oximetry 100 Oxygen Delivery Method Room Air BMI result Body Mass Index 23.7 Appearance: Alert. Oriented X3. No acute distress. Eyes: Pupils equal, round and reactive to light. ENT: Pharynx normal. Neck: Normal inspection. Neck supple. CVS: Normal heart rate and rhythm. Pulses normal. Respiratory: No respiratory distress. Breath sounds normal. Abdomen: Soft nondistended but she has diffuse tenderness to palpation no rebound Skin: Skin warm and dry. Normal skin color. Normal skin turgor. Extremities: No lower extremity edema. No calf ttp Neuro: Oriented X 3. No motor deficit. No sensory deficit. CN2-12 intact Course Course Course Narrative: RME: 40-year-old female presents to ED for abdominal pain for 3 weeks. Patient states bloated nauseous vomiting. Patient states no bowel movement for 1 week. Patient is only able to drink liquids. Labs ordered Medications Administered Discontinued Medications Generic Name Dose Route Start Last Admin Trade Name Freq PRN Reason Stop Dose Admin Diatrizoate Meglum/Diatrizoate Sod 30 ml 10/09/25 21:35 10/09/25 21:35 Diatrizoate Meglumine, Sodium 30 Ml Solution PO 10/09/25 21:36 30 ml ONCE ONE Administration Lactated Ringer's 1,000 mls @ 999 mls/hr 10/09/25 18:24 10/09/25 20:43 Lr IV 10/09/25 19:24 Infused .Q1H1M ONE Infusion Iohexol 85 ml 10/09/25 21:34 10/09/25 21:35 Iohexol 350 Mg/Ml 100 Ml Infus..Btl IV 10/09/25 21:35 85 ml ONCE ONE Administration Morphine Sulfate 4 mg 10/09/25 18:24 10/09/25 18:35 Morphine Sulfate 4 Mg/Ml Cartridge IVPUSH 10/09/25 18:25 4 mg ONCE ONE Administration Protocol Ondansetron HCl 4 mg 10/09/25 18:24 10/09/25 18:35 Ondansetron Hcl 4 Mg/2 Ml Vial IVPUSH 10/09/25 18:25 4 mg ONCE ONE Administration Medical Decision Making Medical Decision Making [facility] Narrative: 40-year-old female with past medical history of depression, anxiety, iron deficiency anemia, asthma, restless leg syndrome, migraines, prior gastric [place] [address] Lopez she has not had any complications she now comes in with persistent abdominal pain, nausea, vomiting unable to eat or drink. She is not having bowel movements but she states she is passing gas. At this time given her history and the worsening symptoms I am going to obtain basic labs, start on IV fluids, started on IV morphine for pain, I am going to do both oral and IV contrast to assess for any obstruction that we might be missing giving the abnormal read on the most recent visit. Differential Diagnosis Differential Diagnoses: The differential diagnosis associated with the presentation includes Obstruction, gastritis, pancreatitis, constipation Admission/Observation Consideration of admission/observation: Escalation of care including admission/observation considered At this time she is able to tolerate p.o. there is nothing concerning on CT scan with IV and oral contrast I am going to discharge her out with her providers she is aware and has and OBGYN follow-up in the next week for her cyst Lab Data [facility] Lab Attestation statement: I reviewed the patient's lab results. 10/09/25 16:42 10/09/25 16:42 Labs: Lab Results 10/09/25 10/09/25 Range/Units 16:42 20:18 WBC 4.5 L (4.8-10.8) X10*3/uL RBC 4.30 (4.20-5.50) X10*6/uL Hgb 14.0 (12.0-16.0) g/dl Hct 40.6 (37.0-47.0) % MCV 94.4 (80.0-98.0) fL MCH 32.6 (27.0-33.0) pg MCHC 34.5 (31.0-35.0) g/dl RDW 12.6 (11.0-16.0) % Plt Count 244 (160-400) X10*3/uL MPV 9.5 (9.4-12.3) fL Immature Gran % (Auto) 0.2 (0.0-0.4) % Neut % (Auto) 56.9 (45-73) % Lymph % (Auto) 32.7 (20-40) % Branch % (Auto) 8.2 (2-11) % Eos % (Auto) 1.3 (0-4) % Baso % (Auto) 0.7 (0-2) % Lymph # (Auto) 1.5 (1.2-4.9) X10*3/uL Branch # (Auto) 0.4 (0.1-1.2) X10*3/uL Eos # (Auto) 0.1 (0.0-0.4) X10*3/uL Baso # (Auto) 0.0 (0.0-0.2) X10*3/uL Abs Immat Gran (auto) 0.01 (0.00-0.03) X10*3/uL Absolute Neuts (auto) 2.6 (2.0-8.3) x10*3/uL Absolute Nucleated RBC 0.000 (0.0-0.012) X10*3/uL Nucleated RBC % (auto) 0.0 (0.0-0.2) /100WBC Sodium 140 (135-145) mmol/L Potassium 4.2 (3.3-5.1) mmol/L Chloride 105 (96-108) mmol/L Carbon Dioxide 29 (22-29) mmol/L Anion Gap 10 L (12-20) BUN 11 (9-16) mg/dL Creatinine 0.68 (0.5-1.4) mg/dL Estim Creat Clear Calc 86.4 Estimated GFR > 60 Random Glucose 88 (60-115) mg/dL Calcium 9.2 (8.4-10.2) mg/dL Total Bilirubin 0.6 (0.0-1.0) mg/dL AST 21 (5-31) U/L ALT 21 (0-31) U/L Alkaline Phosphatase 63 (39-117) U/L Total Protein 6.9 (6.5-8.0) g/dL Albumin 4.3 (3.5-5.0) g/dL Beta HCG, Quant < 2 mIU/mL Urine Color Yellow Urine Appearance Clear Urine pH 6.0 (5.0-9.0) Ur Specific [place] <= 1.005 (1.005-1.025) Urine Protein Negative (Neg-Trace) mg/dL Urine Glucose (UA) Negative (Negative) mg/dL Urine Ketones Negative (Negative) mg/dL Urine Blood Negative (Negative) Urine Nitrite Negative (Negative) Ur Leukocyte Esterase Negative (Negative) Independent Interpretation I performed an independent interpretation of an: CT Scan (No obstruction) Radiology Impression Discussion of test interpretation with radiology: I have reviewed the radiologist's reading. External Record Review External record reviewed: Outpatient record, Prior outpatient labs and Prior outpatient radiology Prescription Management I considered prescription management with: Other Discharge Plan Discharge Clinical Impression: Abdominal pain Patient Disposition: Home, Self-Care Instructions: Abdominal Pain (ED) Additional Instructions: Your labs are reassuring today There is no distention or signs of obstruction on exam today You have the persistent ovarian cysts and needs a repeat ultrasound in the next 1-2 weeks Stay hydrated Eat a well-balanced diet Return for any worsening symptoms or concerns Findings: The lung bases are clear. Right hepatic lobe cyst. Gallbladder, pancreas, spleen, and adrenal glands are within normal limits. No hydronephrosis. Symmetric contrast enhancement of the kidneys. Status post gastric bypass. Oral contrast is seen through small bowel loops in the pelvis. No extraluminal contrast. No bowel obstruction, pneumatosis or pneumoperitoneum. Moderate stool in the right hemicolon. IUD in the endometrial cavity. Right ovarian cyst measuring 4.4 x 2.7 cm. No acute fracture. IMPRESSION: 1. No acute intraabdominal or pelvic pathology. This document has been electronically signed by: Marcie Adams MD on 10/09/2025 22:24:00 Prescriptions: New cyclobenzaprine 10 mg tablet 10 mg PO TID PRN (Reason: muscle spasm) Qty: 20 0RF ondansetron 4 mg tablet,disintegrating 4 mg PO Q8H PRN (Reason: nausea and vomiting) Qty: 20 0RF lactulose [Constulose] 10 gram/15 mL solution 20 g PO DAILY PRN (Reason: constipation) Qty: 1200 0RF No Action magnesium oxide 400 mg magnesium capsule 400 mg PO DAILY Qty: 30 3RF escitalopram oxalate 5 mg tablet 5 mg PO DAILY Qty: 30 6RF ibuprofen 400 mg tablet 400 mg PO Q6H PRN (Reason: pain) Qty: 14 0RF valacyclovir 1 gram tablet 1,000 mg PO TID 7 Days Qty: 21 0RF oxycodone 5 mg tablet 5 mg PO TID PRN (Reason: pain) Qty: 14 0RF Rx Instructions: Partial Fill upon patient request. ondansetron 4 mg tablet,disintegrating 4 mg PO Q8H PRN (Reason: nausea and vomiting) Qty: 14 0RF albuterol sulfate 90 mcg/actuation aerosol powdr breath activated 1 inh inhalation Q4-6H PRN gabapentin 100 mg capsule See Rx Instructions PO BEDTIME Qty: 90 6RF Rx Instructions: 1-3 caps orally bedtime; riboflavin (vitamin B2) 100 mg tablet 400 mg PO QAM Qty: 120 6RF Interventions: ED Discharge Assessment Last Done: 10/09/25 22:42 Discharge Date/Time: 10/09/25 22:43 Print Language: Citizen Of [place]
[2025-10-09 16:47] LABS: MANUAL DIFF FLAG NO
[2025-10-09 16:49] LABS: Hematocrit 40.6 % (37.0-47.0); Hemoglobin 14.0 g/dl (12.0-16.0); Imm Gran Abs Auto 0.01 X10*3/uL (0.00-0.03); Imm Gran Pct Auto 0.2 % (0.0-0.4); Lymphocytes Absolute Auto 1.5 X10*3/uL (1.2-4.9); Mean Corpuscular HGB Conc 34.5 g/dl (31.0-35.0); Mean Corpuscular Hemoglobin 32.6 pg (27.0-33.0); Mean Corpuscular Volume 94.4 fL (80.0-98.0); NRBC Abs Auto 0.000 X10*3/uL (0.0-0.012); NRBC Pct Auto 0.0 /100WBC (0.0-0.2); Platelet Count 244 X10*3/uL (160-400); Red Blood Count 4.30 X10*6/uL (4.20-5.50); White Blood Count 4.5 X10*3/uL (4.8-10.8)
[2025-10-09 17:13] LABS: Alanine Aminotransferase 21 U/L (0-31); Albumin Level 4.3 g/dL (3.5-5.0); Alkaline Phosphatase 63 U/L (39-117); Anion Gap 10 (12-20); Aspartate Amino Transferase 21 U/L (5-31); Blood Urea Nitrogen 11 mg/dL (9-16); Calcium 9.2 mg/dL (8.4-10.2); Carbon Dioxide 29 mmol/L (22-29); Chloride 105 mmol/L (96-108); Creatinine Clr Calc Pharmacy 86.4; Estimated Glomerular Filt Rate > 60; Potassium 4.2 mmol/L (3.3-5.1); Sodium 140 mmol/L (135-145); Total Protein 6.9 g/dL (6.5-8.0)
--- OUTSIDE RECORDS SUMMARY | 2025-10-09 17:58 | XMS_ITS | Clinical Summary ---
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 Activ e cyclobenzaprin e (FLEXERIL) 5 mg tablet Take 5 mg [...] mg by mouth 3 times daily. Active hydrOXYzine HCL (ATARAX) 25 mg tablet Take by mouth. Ac tive sertraline (ZOLOFT) 50 mg tablet Take 1 tablet (50 mg total) by mouth 1 (one) time each day. Active tirzepatide, weight loss, (Zepbound) 12.5 mg/0.5 mL injection Inject 0.5 mL (12.5 mg total) under the skin every 7 (seven) days for 28 days. 2 mL 09/28/20 25 026 Active Zepbound 12.5 mg/0.5 mL injection INJECT 12.5 MG (0.5 ML) SUBCUTANEOUSLY EVERY 7 DAYS 8 mL 08/29/20 25 025 Discontin ued(Reord er) Active Problems Problem Noted Date Diagnosed Date [...] Encounters Date Type Department Care Team Description 09/28/2025 Telephone Bariatric Surgery - [place] [address] [facility] [address] [place] [address] Susan Hill PA 09/04/2025 Lab Requisition [facility] [address] [facility] [place] [address] Felecia Guerrero MD Encounter for gynecological examination (general) (routine) without abnormal findings 09/03/2025 Lab Requisition [facility] [address] [facility] [place] [address] Felecia Guerrero MD Encounter for screening for infections with a predominantly sexual mode of transmission from Last 3 Months Immunizations Immunization Administration Dates Next Due HARRY/Julien SARS-CoV-2 COVID -19, vector-nr, rS-Ad26, preservative free [...] on file Sexual Orientation Not on file Last Filed Vital Signs [...] AM EST Office Visit Bariatric Surgery - [place] [address] [facility] [address] [place] [address] Susan Hill, WILL [address] [place] [phone] Health Maintenance Due Date Last Done Comments Hepatitis B Vaccines (1 of 3 - 19+ 3-dose series) 2005 Pneumococcal Vaccine: Pediatrics (0 to 5 Years) and At-Risk Patients (6 to 49 Years) (1 of 2 - PCV) 2005 HPV Vaccines (1 - 3-dose SCD M series) 2013 HIV Screening 09/20/2022 Hepatitis C Screening 09/20/2022 Social Influencers of Health Screening 09/20/2022 Depression Screening 10/18/2024 COVID-19 Vaccine (3 - 2024-2 6 season) 2025 08/30/2021, 01/26/2021 Influenza Vaccine (#1) 2025 2, 08/02/2017 DTaP,Tdap,and Td Vaccines (3 - Td or Tdap) 06/22/2025 06/22/2015, 05/13/2012 Cholesterol Screening (Lipid Panel) 02/06/2030 02/06/2025 Cervical Cancer Screening: HPV 09/03/2030 09/03/2025 RSV Immunization Adult Patients (1 - 1-dose 75+ series) 2061 HIB Vaccines Aged Out No longer eligi [...] Date/Time Associated Diagnosis Comments PAP SMEAR Routine 09/03/2025 12:00 AM EST Encounter for gynecological examination (general) (routine) without abnormal findings HPV WITH REFLEX GENOTYPE Routine 09/03/2025 12:00 AM EST Encounter for gynecological examination (general) (routine) without abnormal findings CHLAMYDIA TRACHOMATIS AND NEISSERIA GONORRHOEAE PCR Routine 09/03/2025 12:00 AM EST Encounter for screening for infections with a predominantly sexual mode of transmission LIPID PANEL WITH REFLEX TO DIRECT LDL Routine 02/06/2025 11:33 AM EDT Depression Anxiety Anemia Asthma Abdominal migraine Routine general medical examination at a health care facility from Last 3 Months or Most Recently Relevant to Health Maintenance Results * HPV with reflex genotype (09/03/2025 12:00 AM EST) HPV Negative Negative LAB MICROBIOLOGY METHOD 09/04/2025 1:39 PM EST [facility] Brushing/Spatula Cervix uteri structure / Unknown 09/03/2025 09/04/2025 6:14 AM EST us Felecia Guerrero MD LAB MOLECULAR DIAGNOSTIC S ORDERABLES Final Result [facility] [address] [place] [address], * Chlamydia trachomatis and Neisseria gonorrhoeae molecular study (09/03/2025 12:00 AM EST) Neisseria gonorrhoeae PCR Negative Negative LAB MOLECULAR DIAGNOSTICS METHOD 09/03/2025 3:54 PM EST [facility] Chlamydia trachomatis PCR Negative Negative LAB MOLECULAR DIAGNOSTICS METHOD 09/03/2025 3:[address] [facility] Swab Cervix uteri structure / Unknown 09/03/2025 09/03/2025 1:27 PM EST Felecia Guerrero MD LAB MICROBIOLOGY - GENER AL ORDERABLES Final Result [facility] [address] [place] [address], * Pap smear (09/03/2025 12:00 AM EST) Interpretation Negative for intraepithelial lesion or malignancy 09/05/2025 10:[address] [facility] at 1007 EST General Categorization Negative 09/05/2025 10:[address] [facility] Specimen Adequacy Satisfactory for evaluation, endocervical/lackey sformation zone component absent 09/05/2025 10:[address] [facility] Pap Methodology Liquid Based Pap Test 09/05/2025 10:[address] [facility] Disclaimer The Pap test is a screening test which carries an inherent false negative rate. These test results should be correlated with the patient's clinical findings and history. This Pap test was processed using an automated screening system. Technical cytopathology services provided by [facility], at [address] [place] [id number] (CLIA # [id number]/Siobhan Stafford MD, Supervisor Assembling.) 09/05/2025 10:[address] [facility] Console Pap Interpretation Reported 09/05/2025 10:[address] [facility] Brushing/Spatula Cervix uteri structure / Unknown 09/03/2025 09/04/2025 6:14 AM EST Felecia Guerrero MD LAB CYTOLOGY ORDERABLES Final Result [facility] [address] [place] [address], [place] [phone] * Lipid panel with reflex to direct LDL (02/06/2025 11:33 AM EDT) Cholesterol 157 0 - 200 mg/dL LAB CHEMISTRY METHOD 02/06/2025 3:51 PM EDT [facility] Triglycerides 71 0 - 150 mg/dL LAB CHEMISTRY METHOD 02/06/2025 3:51 PM EDT [facility] HDL 56 >=40 mg/dL LAB CHEMISTRY METHOD 02/06/2025 3:51 PM EDT [facility] LDL Calculated 87 0 - 100 mg/dL LAB CHEMISTRY METHOD 02/06/2025 3:51 PM EDT [facility] VLDL Cholesterol Maninder 14.2 mg/dL LAB CHEMISTRY METHOD 02/06/2025 3:51 PM EDT [facility] Non HDL Chol. (LDL+VLDL) 101 <145 mg/dL LAB CHEMISTRY METHOD 02/06/2025 3:51 PM EDT [facility] Chol/HDL Ratio 2.8 0.0 - 4.4 LAB CHEMISTRY METHOD 02/06/2025 3:51 PM EDT [facility] Blood Venous blood specimen / Unknown Venipuncture / Unknown 02/06/2025 11:33 AM EDT 02/06/2025 11:34 AM EDT Any [place] LAB BLOOD ORDERABLES Final Resul t [facility] [address] [place] [address], [place] [phone] from Last 3 Months or Most Recently Relevant to Health Maintenance Insurance [facility] Advance Directives Documents on File Type Date Recorded Patient Magnet Placer Expl anation Health Care Decision (hx) 08/11/2022 AD WHEAT DIRECTIVE Health Care Decision (hx) 08/11/2022 AD WHEAT DIRECTIVE Care Teams Hydraulic Auto Jack Mechanic Relationship Specialty Start Date End Date Guillaume Barkley DO [address] [place] [phone] PCP - General Internal Medicine 06/10/21
--- OUTSIDE RECORDS SUMMARY | 2025-10-09 17:58 | XMS_ITS | Clinical Summary ---
Author Organization [facility] Address [address] [place] [address] Care Team Providers Care Retail Wireless Sales Consultant Name Role Phone Guillaume Barkley Primary Care Provider [phone] Allergies Active Allergy Reactions Criticality Noted Date Comments Oxycodone Dtc-Ivbcmdtxa-Joc Unknown 03/23/2023 Oxycodone-Acetaminophen Unknown,Nausea A nd Vomiting [...] 06/22/2025 06/22/2015, 05/13/2012 Procedures * Due to [place] [employer] law, this organization might not be sharing negative HIV tests. Procedure Name Priority Date/Time Associated Diagnosis Comments PAP SMEAR Routine 11/07/2013 4:14 PM EST from Last 3 Months or Most Recently Relevant to Health Maintenance Results * Due to [place] state law, this organization might not be sharing negative HIV tests. 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
--- OUTSIDE RECORDS SUMMARY | 2025-10-09 17:58 | XMS_ITS | Encounter Summary ---
Author Organization [facility] Address [address] [place] [address] Care Team Providers Care Dust Operator Name Role Phone GerardGuillaume humphreys Primary Care Provider [phone] Encounter Details Date Type Department Care Team (Latest Contact Info) Description 09/04/2025 Lab Requisition [facility] - Main Lab [address] [facility] [place] [phone] Felecia Guerrero MD 299 [facility] [address] [place] [phone] Encounter for gynecological examination (general) (routine) without abnormal findings Social History Tobacco Use Types Packs/Day Years Used Date Smoking Tobacco: Never Smokeless Tobacco: Never Alcohol Use Standard Drinks/Week Comments Yes 0 (1 standard drink = 0.6 oz pur e alcohol) Comments Unknown Sex and Gender Information Value Date Recorded Sex Assigned at Not on file Legal Sex Female 11:25 PM EST Gender Identity Not on file Sexual Orientation Not on file documented as of this encounter Plan of Treatment Upcoming Encounters Date Type Department Care Team (Late st Contact Info) Description 11/08/2025 9:15 AM EST Office Visit Bariatric Surgery - [place] [address] [facility] [address] [place] [address] [place] [address] [place] [phone] documented as of this encounter Procedures Procedure Name Priority Date/Time Associated Diagnosis Comments HPV WITH REFLEX GENOTYPE Routine 09/03/2025 12:00 AM EST Encounter for gynecological examination (general) (routine) without abnormal findings PAP SMEAR Routine 09/03/2025 12:00 AM EST Encounter for gynecological examination (general) (routine) without abnormal findings documented in this encounter Results * HPV with reflex genotype (09/03/2025 12:00 AM EST) HPV Negative Negative LAB MICROBIOLOGY METHOD 09/04/2025 1:39 PM [facility] Brushing/Spatula Cervix uteri structure / Unknown 09/03/2025 09/04/2025 6:14 AM EST us Felecia Guerrero MD LAB MOLECULAR DIAGNOSTIC S ORDERABLES Final Result [facility] [address] [place] [address], * Pap smear (09/03/2025 12:00 AM EST) Interpretation Negative for intraepithelial lesion or malignancy 09/05/2025 10:07 AM [facility] at 1007 EST General Categorization Negative 09/05/2025 10:07 AM [facility] Specimen Adequacy Satisfactory for evaluation, endocervical/lackey sformation zone component absent 09/05/2025 10:07 AM [facility] Pap Methodology Liquid Based Pap Test 09/05/2025 10:07 AM [facility] Disclaimer The Pap test is a screening test which carries an inherent false negative rate. These test results should be correlated with the patient's clinical findings and history. This Pap test was processed using an automated screening system. Technical cytopathology services provided by [facility], at [address] [place] [address] (CLIA # [id number]/Siobhan Stafford MD, Furniture Sales Associate.) 09/05/2025 10:07 AM EST [facility]) [facility] Console Pap Interpretation Reported 09/05/2025 10:07 AM EST [facility]) [facility] Brushing/Spatula Cervix uteri structure / Unknown 09/03/2025 09/04/2025 6:14 AM EST us Felecia Guerrero MD LAB CYTOLOGY ORDERABLES Final Result [facility] ([facility]) [facility] [address] [place] [address], documented in this encounter Visit Diagnoses Diagnosis Encounter for gynecological examination (general) (routine) without abnormal findings documented in this encounter Care Teams Dust Operator Relationship Specialty Start Date End Date Guillaume Barkley DO [address] [place] [phone] PCP - General Internal Medicine 06/10/21 documented as of this encounter
--- OUTSIDE RECORDS SUMMARY | 2025-10-09 17:58 | XMS_ITS | Data Portability ---
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 These images included [...] grossly intact. Eyes: Sclera are not blue. bowling alley mechanic II-XII are grossly intact. Full extraocular motion. [...] activities is allowed. 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 I referred her to physical therapy with an impingement and periscapular strengthening protocol. Should symptoms fail to improve and/or recur despite these conservative measures over the next 3-4 months, I recommend they call back for another visit. We did briefly discuss the role of left shoulder arthroscopy surgery should continue conservative treatment fail. All questions and concerns were addressed. [email or web address] Not available 05/11/2024 10:01:55 Plan of Treatment Reminders Order Date Submit Date Provider Name Organization Details Last Modified By Last Modified Time Details Appointments None recorde d. Lab None recorde d. Referral physica l therapi st referra l 2023 09:56: 37 024 Saurav Palacios MD [facility] [address], [place], [address], Saurav Palacios MD 11:46:31 Procedures None recorde d. Surgeries None recorde d. Imaging None recorde d. MedicationOrders None recorde d. VaccineOrders None recorde d. Patient TargetsNo targets recorded. Patient InstructionsNo instructions recorded. Reason for Referral Physical Therapist Referral for Impingement syndrome of left shoulder region PHYSICAL THERAPY REFERRAL ICD-10: M75.42(left) 1. Rotator cuff strengthening program. 2. Scapular stabilization program including strengthening, mobilization, and proprioception. 3. Soft tissue modalities as indicated. 4. Home exercise program. 5. Therapeutic exercises: all exercises prn per therapist. 6. Manual therapy: all manual therapy prn per therapist. Allow 2-3 visits a week for 6-8 weeks. Completed by: Referring Physician: Saurav Palacios, Orthopedic Surgery, [id number] Encounter Date: 05/11/2024 Procedures Surgical History Date Name Laterality Status Provider Name and Address Organization Details Recorded Time 4 Sports Shoulder completed Saurav Palacios MD [address] [facility] [address], [place], [address], [facility] 05/11/2024 10:02:02 Imaging Results None recorded. Procedure Notes None recorded. Medical Equipment None Reported. Allergies Allergen ID Allergen Name Allergen Category Reaction Reaction Severity Criticality Documentation Date Start Date Code Code System Note Provider Name and Address Organization Details Recorded Time 176996 doxycycli ne hyclate medicatio n Not available Not available Not available 12/20/20232022 73247 RxNorm Not Available Pending sale to [facility] 4 15:37:40 506437 acetamino phen / oxycodone medicatio n Not available Not available Not available 12/20/20232022 81522 3 RxNorm Not Available Pending sale to [facility] 4 15:37:40 Medications Name Authored On Sig Start Date Stop Date Status Note Indication Fill Status Repeat Number Dispense Quantity LastModified by Organization Details LastModified Time Aeroc hambe r Plus Flow- Vu 4 09:21:07 USE DIRE CTED active Not Available Not availab le 0 Not Available Not Available [facility] 05/11/2024 09:21:07 albut justina sulfa te 2.5 mg/3 mL (0.08 3 %) solut ion for nebul izati on 4 09:21:07 INHA LE 3 ML EVER Y 6 HOUR S NEED ED FOR 30 DAYS active Not Available Not availab le 0 Not Available Not Available [facility] 05/11/2024 09:21:07 benzo natat e 200 mg capsu le 4 09:21:07 TAKE 1 CAPS ULE BY MOUT H THRE E TIME S A DAY NEED ED FOR COUG H FOR 10 DAYS active Not Available Not availab le 0 Not Available Not Available [facility] 05/11/2024 09:21:07 bupro pion HCl XL 150 mg 24 hr table t, exten ded relea se 4 09:21:07 TAKE 1 TABL ET BY MOUT H EVER Y DAY IN THE MORN ING FOR 30 DAYS active Not Available Not availab le 0 Not Available Not Available [facility] 05/11/2024 09:21:07 escit alopr am 20 mg table t 4 09:21:07 TAKE 1 TABL ET BY MOUT H EVER Y DAY FOR 30 DAYS active Not Available Not availab le 0 Not Available Not Available [facility] 05/11/2024 09:21:07 escit alopr am 5 mg table t 4 09:21:07 TAKE 1 TAB ORAL LY NANDO Y active Not Available Not availab le 0 Not Available Not Available [facility] 05/11/2024 09:21:07 Flove nt HFA 110 mcg/a ctuat ion aeros ol inhal er 4 09:21:07 INHA LE 2 PUFF S INTO THE LUNG S TWIC E A DAY FOR 30 DAYS active Not Available Not availab le 0 Not Available Not Available [facility] 05/11/2024 09:21:07 Flove nt HFA 220 mcg/a ctuat ion aeros ol inhal er 4 09:21:07 TAKE 2 PUFF S EVER Y MORN ING active Not Available Not availab le 0 Not Available Not Available [facility] 05/11/2024 09:21:07 hydro codon e 7.5 mg-ac etami nophe n 325 mg table t 4 09:21:07 TAKE 1 TABL ET BY MOUT H EVER Y 6 HOUR S NEED ED FOR PAIN FOR UP TO 7 DAYS . active Not Available Not availab le 0 Not Available Not Available [facility] 05/11/2024 09:21:07 loraz epam 0.5 mg table t 4 09:21:07 TAKE 1 TO 2 TABL ETS AT BEDT CURTIS NEED ED ORAL LY ONCE A DAY 7 DAYS active Not Available Not availab le 0 Not Available Not Available [facility] 05/11/2024 09:21:07 magne sium oxide 400 mg (241. 3 mg magne sium) table t 4 09:21:07 TAKE 1 TABL ET BY MOUT H EVER Y DAY active Not Available Not availab le 0 Not Available Not Available [facility] 05/11/2024 09:21:07 Nurte c ODT 75 mg disin tegra ting table t 4 09:21:07 TAKE 1 TABL ET BY MOUT H ONCE , NEED ED FOR MIGR MACK HEAD ACHE active Not Available Not availab le 0 Not Available Not Available [facility] 05/11/2024 09:21:07 predn isone 20 mg table t 4 09:21:07 TAKE 2 TABL ETS BY MOUT H NANDO Y X3 DAYS active Not Available Not availab le 0 Not Available Not Available [facility] 05/11/2024 09:21:07 rizat ripta n 5 mg table t 4 09:21:07 PLEA SE SEE CHAVEZ CHED FOR DETA ILED DIRE CTIO NS active Not Available Not availab le 0 Not Available Not Available [facility] 05/11/2024 09:21:07 sertr aleksander 50 mg table t 4 09:21:07 TAKE 0.5 TABL ETS FOR 2 WEEK S, THEN 1 TABL ET THER EAFT ER ORAL LY ONCE A DAY 30 DAYS active Not Available Not availab le 0 Not Available Not Available [facility] 05/11/2024 09:21:07 tobra mycin 0.3 %-dex ameth asone 0.1 % eye drops ,susp ensio n 4 09:21:07 INST ILL 1 DROP INTO RIGH T EYE TWIC E A DAY ELW E PLACIDO LE WELL BEFO RE EACH USE active Not Available Not availab le 0 Not Available Not Available [facility] 05/11/2024 09:21:07 topir amate 50 mg table t 4 09:21:07 TAKE 1 TABL ET BY MOUT H EVER YDAY AT BEDT CURTIS active Not Available Not availab le 0 Not Available Not Available [facility] 05/11/2024 09:21:07 zolmi tript an 5 mg table t 09:21:07 1 TABL ET BY EMPERATRIZ Swartz ONCE NEED ED FOR MIGR MACK HEAD ACHE ,INS TR:M AY REPE AT DOSE ONCE IN 2 HOUR S active Not Available Not availab le 0 Not Available Not Available Pending sale to [facility] 05/11/2024 09:21:07 Vitals Date Recorded Body height Body mass index (BMI) Body weight Provider Name and Address Organization Details Last Updated DateTime 05/11/2024 152.4 cm 39.1 kg/m2 70688.47 g NADER ARAUZ MD - [facility] 05/11/2024 09:43:54 Social History Social History Observation Description Date Observed Sex Unknown 10/17/2024 Legal Sex Female No social history survey screeners recorded No social history SDOH screeners recorded Functional Status None recorded. No Functional Screening assessment recorded No Functional SDOH screeners recorded Mental Status None recorded. No Mental Screening assessment recorded No Mental SDOH screeners recorded Family History Nothing Reported. Medical History No medical history recorded. Gynecological HistoryNo gynecological history recorded. Obstetrics History GPAL:G 0 P 0 0 0 0 Past Encounters Encounter ID Performer Location Encounter Start Date Encounter Closed Date Diagnosis/Indication Diagnosis SNOMED-CT Code Diagnosis ICD10 Code Diagnosis IMO Codes Diagnosis Note [id number] Saurav Palacios MD [facility] [address] [place] [phone] 05/11/2024 09:20:17 06/02/2024 13:55:36 Impingement syndrome of left shoulder region 6523587286 97080 M75.42 Health Concerns Section Related Observation LastModified by Organization Detai ls LastModified Time None Recorded Concern Status LastModified by Organization Details LastModified Time None Recorded SDOH Concern Status LastModified by Organization Detai ls LastModified Time None Recorded Advance Directives Directive None Recorded Payers Insurance Date Sequence Insurance Name Policy Number Policy Keating Covered Member ID Keating Member ID Guarantor Name 06/02/2024 1 [facility] [employer] - TOGETHER (MEDICAID HMO) [id number] Mary Peerz [id number] 1 Mary Ana Care Team Name Role Member ID Specialty Address Phone MARTINE HERNANDEZ DO Primary Care Provider [id number] [place] [address] 18, PORFIRIO Brooks OBGyn Episode No OBEpisode recorded.
--- OUTSIDE RECORDS SUMMARY | 2025-10-09 17:58 | XMS_ITS | Clinical Summary ---
Author Organization [facility] Prior to 03/17/25 Address [address] [place] [address] Care Team Providers Care Warping Mill Operator Name Role Phone Guillaume Barkley DO Primary Care Provider [phone] Allergies Active Allergy Reactions Criticality Noted Date [...] age to complete this topic Care Teams Warping Mill Operator Relationship Specialty Start Date End Date Guillaume Barkley DO [address] [place] [address] PCP - General Internal Medicine 03/06/22
--- OUTSIDE RECORDS SUMMARY | 2025-10-09 17:58 | XMS_ITS | Encounter Summary ---
Author Organization [facility] Address [address] [place] [address] Care Team Providers Care Collection Systems Technician Name Role Phone GerardGuillaume humphreys Primary Care Provider [phone] Encounter Details Date Type Department Care Team (Latest Contact Info) Description 09/03/[address] [facility] - Main Lab [address] [facility] [place] [phone] Felecia Guerrero MD 299 [facility] [address] [place] [phone] Encounter for screening for infections with a predominantly sexual mode of transmission Social History Tobacco Use Types Packs/Day Years [...] AM EST Office Visit Bariatric Surgery - [place] [address] [facility] [address] [place] [address] [place] [facility] [address] [place] [phone] documented as of this encounter Procedures Procedure Name Priority Date/Time Associated Diagnosis Comments CHLAMYDIA TRACHOMATIS AND NEISSERIA GONORRHOEAE PCR Routine 09/03/2025 12:00 AM EST Encounter for screening for infections with a predominantly sexual mode of transmission documented in this encounter Results * Chlamydia trachomatis and Neisseria gonorrhoeae molecular study (09/03/2025 12:00 AM EST) Neisseria gonorrhoeae PCR Negative Negative LAB MOLECULAR DIAGNOSTICS METHOD 09/03/2025 3:54 PM EST [facility] Chlamydia trachomatis PCR Negative Negative LAB MOLECULAR DIAGNOSTICS METHOD 09/03/2025 3:54 PM EST [facility] Swab Cervix uteri structure / Unknown 09/03/2025 09/03/2025 1:27 PM EST us Felecia Guerrero MD LAB MICROBIOLOGY - [facility] AL ORDERABLES Final Result [facility] [address] [place] [address], documented in this encounter Visit Diagnoses Diagnosis Encounter for screening for infections with a predominantly sexual mode of transmission documented in this encounter Care Teams Collection Systems Technician Relationship Specialty Start Date End Date Guillaume Barkley DO [address] [place] [phone] PCP - General Internal Medicine 06/10/21 documented as of this encounter
--- OUTSIDE RECORDS SUMMARY | 2025-10-09 17:58 | XMS_ITS | Encounter Summary ---
Author Organization [facility] Address [address] [place] [address] Care Team Providers Care Laborer Cement Gun Placing Name Role Phone Guillaume Barkley Primary Care Provider [phone] Encounter Details Date Type Department Care Team (Late st Contact Info) Description 05/13/2023 Genius Blendshart [facility] Pre Surgical Evaluation [address] [place] [address] Mychart, Generic Provider [address] [place], [place] [phone] Pre-Operative instructions for surgery 05/20/23- Dr Yang [...] on filedocumented in this encounter Care Teams Laborer Cement Gun Placing Relationship Specialty Start Date End Date MaryanaaspenGuillaume soto [address] [place] [address] PCP - General Internal Medicine 02/03/23 documented as of this encounter
--- NOTE | 2025-10-09 17:59 | PC.NURSE ---
Patient presents to ED with complaints of abdominal pain/ bloating/ constipation and flatus for a couple weeks. over the past two days she had a significant decrease in PO intake as she was unable to keep it down. She noticed brought red blood in her emesis last night. Patient states she has been on zepound since last October. IV in right AC.
[2025-10-09] MEDS: Lactated Ringers 1,000 ML 999 ML IV (18:37)
[2025-10-09 20:25] VITALS: BP 120/72; PULSE 69; RESP 18; TEMP 36.6; O2SAT 100
[2025-10-09 20:25] LABS: Appearance Urine Clear; Glucose Urine UA Negative (Negative); PH 6.0 (5.0-9.0); Specific Gravity - Urine <= 1.005 (1.005-1.025)
--- NOTE | 2025-10-09 21:13 | PC.NURSE ---
Pt able to tolerate about half of PO contrast, spoke to provider Dr. Steven patient okay to scan, CT made aware.
[2025-10-09] MEDS: iohexoL 350 MG/ML 100 ML INFUS..BTL 85 ML IV (21:35)
[2025-10-09 22:39] VITALS: BP 114/76; PULSE 74; RESP 18; TEMP 36.6; O2SAT 100
[2025-10-09 22:42] VITALS: BP 114/76; PULSE 74; RESP 18; TEMP 36.6; O2SAT 100
== END 2025-10-09 22:43 | disposition home or self-care (01) ==
PROVIDERS: Physician Assistant; Emergency Provider Emergency Medicine
DX: R10.9 Unspecified abdominal pain (principal); R11.2 Nausea with vomiting, unspecified; K59.00 Constipation, unspecified; Z98.84 Bariatric surgery status; D50.9 Iron deficiency anemia, unspecified; J45.909 Unspecified asthma, uncomplicated
CPT/HCPCS: 36415; 74177; 80053; 81003; 84702; 85025; 96361; 96374; 96375; 99284; 99285; J2270; J2405; J7120; Q9967

== ENCOUNTER → 2025-10-09 18:24 | Outpatient (BNV) | payer OTHER, SELFPAY | PROVIDERS: Emergency Provider Emergency Medicine; Visit Provider Radiology Diagnostic Radiology | DX: K59.00 Constipation, unspecified (principal); R11.2 Nausea with vomiting, unspecified | CPT/HCPCS: 74177 ==